=== PATIENT | female | born 1945 | race Caucasian/White ===

== ENCOUNTER 2021-03-02 18:58 | Emergency (ER) | payer MEDICARE, OTHER ==
[2021-03-02] MEDS ORDERED: Sodium Chloride 0.9% 10 ML Syringe FLUSH PRN (20:05)
[2021-03-02] MEDS ORDERED: Sodium Chloride 0.9% 1,000 ML IV ONE ×2 (20:05→20:07)
[2021-03-02] MEDS ORDERED: Sodium Chloride 0.9% 2.5 ML Syringe FLUSH PRN (20:05)
[2021-03-02] MEDS ORDERED: Ondansetron 4 MG/2 ML SDV IVPUSH ONE ×2 (20:05→22:48)
[2021-03-02 20:22] LABS: BLOOD UREA NITROGEN,BUN 12 mg/dL (7.0-18.0); CARBON DIOXIDE,CO2 25.3 mmol/L (21.0-32.0); CHLORIDE,CL 103 mmol/L (98-107); GLUCOSE RANDOM 136 mg/dL (74-106); POTASSIUM,K 3.6 mmol/L (3.5-5.1); SODIUM,NA 137 mmol/L (136-145)
--- NOTE | 2021-03-02 20:38 | CR ---
INDICATION: Cough. COMPARISON: 12 May 2011. FINDINGS: Chronic slight elevation medial right hemidiaphragm. Heart size upper normal for AP projection. No acute cardiopulmonary disease. No meaningful change from comparison. Dictated by Felipe Hastings MD @ 03/02/2021 8:37:[address] Felipe Hastings @ Mar 02 2021 8:37PM
[2021-03-02 21:16] LABS: CORONAVIRUS COVID-19 NAA POSITIVE (NEGATIVE); INFLUENZA A NAA NEGATIVE (NEGATIVE); INFLUENZA B NAA NEGATIVE (NEGATIVE)
--- NOTE | 2021-03-02 22:26 | EDM.PDOC ---
ED HPI GENERAL MEDICAL PROBLEM - General Chief Complaint: Respiratory Problem Stated Complaint: FATIGUE SHORTNESS OF BREATH Time Seen by Provider: 03/02/21 19:24 - History of Present Illness INITIAL COMMENTS - FREE TEXT/NARRATIVE: HISTORY AND PHYSICAL: History of present illness: This is a 75-year-old female who is status post renal transplant x2 who is currently on chronic steroid, Prograf use who presents ER today secondary to concerns of URI symptoms, shortness of breath, cough, congestion, loss of taste and smell x5 to 6 days. Patient reports that she is visiting family from [place] when her symptoms began. Patient denies any recent fevers, shakes, chills. Patient reports that she has been feeling cold over the last several days. Patient denies any vomiting or diarrhea but reports that she feels extremely nauseous. Patient is complaining of a headache with no photophobia or neck stiffness. Patient denies any chest pain or discomfort. Patient denies any abdominal pain or discomfort. Patient denies any dysuria, frequency, urgency, melena, bright red blood per rectum. Patient reports that she did receive her second dose of Covid vaccination approximately 1 month ago. Review of systems: As per history of present illness and below otherwise all systems reviewed and negative. Past medical history: As per history of present illness and as reviewed below otherwise noncontributory. Surgical history: As per history of present illness and as reviewed below otherwise noncontributory. Social history: No reported history of drug or alcohol abuse. Family history: As per history of present illness and as reviewed below otherwise noncontributory. Physical exam: This patient was seen and evaluated during the 2019 SARS-CoV-2 novel coronavirus pandemic period. Community viral transmission is ongoing at time of this encounter and the emergency department is operating under pandemic response procedures. Constitutional: Patient is oriented to person, place, and time. Appears well-developed and well-nourished. No distress. HEENT: Moist mucous membranes Head: Normocephalic and atraumatic Eyes: Right eye exhibits no discharge. Left eye exhibits no discharge. No scleral icterus Neck: Normal range of motion. No tracheal deviation present. Cardiovascular: Normal rate and regular rhythm. Pulmonary: Effort normal, no respiratory distress. Abdominal: No distention Musculoskeletal: Normal range of motion Neurologic: Alert and oriented to person, place and time. Skin: [place], warm and dry. Psychiatric: Normal mood and affect. Behavior is normal. Judgment and thought content normal. Nursing note and vital signs have been reviewed Diagnostics: Chest Xray: Normal cardiac silhouette No infiltrates or effusions identified. No PTX No evidence of acute bony fracture. As interpreted by ER MD: Valerie EKG: As interpreted by ER physician: Valerie: Nonspecific ST-T wave abnormalities Normal axis No evidence of ST elevation [place] Normal sinus rhythm heart rate of 75 CBC, CMP within normal limits. Patient's creatinine is 0.8. \Prograf level sent but is a send out. Influenza A/B- coronavirus test is positive in the ED. Pulse ox 94 to 97% on room air Therapeutics: Zofran 4 mg IV NSS wide open x2 L Regeneron order sheet initiated in the ED. I have discussed with the patient and her daughter the risks and benefits of receiving Regeneron and they understand the current FDA recommendations. Assessment and plan: This is a 75-year-old female who has history significant for renal transplant and is on immunosuppressive therapy who presents ER today with signs and sy mptoms concerning for Covid. Patient's Covid test is positive despite receiving her 2 immunizations. Likely failure of the immunizations most likely related to her immunosuppressive therapy. Patient's work-up in the ED is unremarkable at this time. Patient's pulse ox is adequate at 94%. Patient's chest x-ray reveals no evidence of infiltrate. Patient's BUN and creatinine are within normal limits. Given patient's high risk for deterioration to severe coronavirus infection, I have recommended that she receive Regeneron infusion. I have spoken to the pharmacist baton teacher and she will assist with assuring appropriate follow-up. We have also filled out the appropriate forms and will be faxed to assure appropriate follow-up of care. Patient currently is living with her daughter, son-in-law, and 3 grandchildren. It appears that her daughter, son-in-law and oldest grandchild of all received the coronavirus vaccination and the family in total have all been exposed and diagnosed with co ronavirus approximately 3 months ago and did not have any significant bad outcomes. Patient and daughter are currently agreeable to initiating the Regeneron protocol for infusion therapy. Reassessment at the time of disposition demonstrates that the patient is in no acute distress. The patient has remained stable throughout the entire ED visit and is without objective evidence for acute process requiring urgent intervention or hospitalization. The patient is stable for discharge, counseling is provided as documented above, discussed symptomatic treatment and specific conditions for return. I have spoken with the patient/caregiver and discussed todays findings, in addition to providing specific details for the plan of care. Questions are answered and there is agreement with the plan. Definitive disposition and diagnosis as appropriate pending reevaluation and review of above. Right Shoulder Pain Score (Numeric/FACES): 4 - Related Data Allergies Allergy/AdvReac Type Severity Reaction Status Date / Time No Known Allergies Allergy Verified 03/02/21 19:26 Home Meds: Home Meds Aspirin 81 mg PO DAILY 03/02/21 [History] Azithromycin [Zithromax] 250 mg PO DAILY 03/02/21 [History] Blood-Glucose Meter,Continuous [Dexcom] 1 dose SUBCUT ASDIRECTED 03/02/21 [History] Docusate Sodium 100 mg PO DAILY 03/02/21 [History] Furosemide [Lasix] 20 mg PO DAILY 03/02/21 [History] Gabapentin [Neurontin] 100 mg PO DAILY 03/02/21 [History] Glimepiride 1 mg PO DAILY 03/02/21 [History] Insulin Aspart [NovoLOG] 1 dose SUBCUT ASDIRECTED 03/02/21 [History] Insulin Glargine,Hum.Rec.Anlog [Basaglar Kwikpen U-100] 1 dose SUBCUT ASDIRECTED 03/02/21 [History] Magnesium Oxide [Magnesium] 400 mg PO DAILY 03/02/21 [History] Mycophenolate Sodium [Mycophenolic Acid] 360 mg PO DAILY 03/02/21 [History] Omeprazole 40 mg PO DAILY 03/02/21 [History] Spironolactone [Aldactone] 25 mg PO DAILY 03/02/21 [History] Tacrolimus [Prograf] 1 mg PO DAILY 03/02/21 [History] Zolpidem [Ambien] 10 mg PO DAILY 03/02/21 [History] amLODIPine [Norvasc] 5 mg PO DAILY 03/02/21 [History] atorvaSTATin [Lipitor] 10 mg PO DAILY 03/02/21 [History] polyethylene glycoL 3350 [MiraLAX] 1 dose PO ASDIRECTED 03/02/21 [History] predniSONE [Prednisone] 5 mg PO DAILY 03/02/21 [History] Past Medical History HEENT History: Reports: Impaired Vision Cardiovascular History: Reports: Hypertension Respiratory History: Reports: None Genitourinary History: Reports: Chronic Renal Insuffiency, Dialysis Other Genitourinary History: two kidney transplants in 2008 and 2015 [employer] History: Reports: Musculoskeletal History: Reports: None Neurological History: Reports: None Psychiatric History: Reports: None Endocrine/Metabolic History: Reports: Diabetes, Type II Hematologic History: Reports: None Oncologic (Cancer) History: Reports: Malignant Melanoma Dermatologic History: Reports: None - Infectious Disease History Infectious Disease History: Reports: Chicken Pox, Measles, Mumps - Past Surgical History GI Surgical History: Reports: Cholecystectomy Social & Family History - Tobacco Use Tobacco Use Status *Q: Never Tobacco User - Caffeine Use Caffeine Use: Reports: Soda - Recreational Drug Use Recreational Drug Use: No ED ROS GENERAL - Review of Systems Review Of Systems: See Below ED EXAM, GENERAL - Physical Exam Exam: See Below Course - Vital Signs Last Recorded V/S: Last Vital Signs Temp 97.1 F 03/02/21 19:26 Pulse 72 03/02/21 21:25 Resp 19 03/02/21 21:25 BP 131/74 03/02/21 21:25 Pulse Ox 97 03/02/21 21:25 - Orders/Labs/Meds Orders: Active Orders 24 hr Category Date Time Status EKG Documentation Completion [RC] AM Care 03/02/21 20:05 Active TACROLIMUS (FK506), BLOOD [REF] Stat Lab 03/02/21 19:45 Received Sodium Chloride 0.9% [Saline Flush] Med 03/02/21 20:05 Active 10 ml FLUSH ASDIRECTED PRN Sodium Chloride 0.9% [Saline Flush] Med 03/02/21 20:05 Active 2.5 ml FLUSH ASDIRECTED PRN Saline Lock Insert [OM.PC] Stat Oth 03/02/21 20:05 Ordered Medication Orders Sodium Chloride (Sodium Chloride 0.9% 10 Ml Syringe) 10 ml FLUSH ASDIRECTED PRN PRN Reason: Keep Vein Open Last Admin: 03/02/21 20:26 Dose: 10 ml Documented by: JUAN M Sodium Chloride (Sodium Chloride 0.9% 2.5 Ml Syringe) 2.5 ml FLUSH ASDIRECTED PRN PRN Reason: Keep Vein Open Last Admin: 03/02/21 20:26 Dose: 2.5 ml Documented by: JUAN M Labs: Laboratory Tests 03/02/21 03/02/21 03/02/21 Range/Units 19:45 19:45 20:32 WBC 2.16 L (4.0-11.0) K/uL RBC 4.90 (4.30-5.90) M/uL Hgb 13.4 (12.0-16.0) g/dL Hct 42.5 (36.0-46.0) % MCV 86.7 (80.0-98.0) fL MCH 27.3 (27.0-32.0) pg MCHC 31.5 (31.0-37.0) g/dL RDW Std Deviation 49.2 (28.0-62.0) fl RDW Coeff of [place] 15 (11.0-15.0) % Plt Count 134 L (150-400) K/uL MPV 10.20 (7.40-12.00) fL Neut % (Auto) 41.2 L (48.0-80.0) % Lymph % (Auto) 45.8 H (16.0-40.0) % [place] % (Auto) 12.5 (0.0-15.0) % Eos % (Auto) 0.5 (0.0-7.0) % Baso % (Auto) 0.0 (0.0-1.5) % Neut # (Auto) 0.9 L (1.4-5.7) K/uL Lymph # (Auto) 1.0 (0.6-2.4) K/uL [place] # (Auto) 0.3 (0.0-0.8) K/uL Eos # (Auto) 0.0 (0.0-0.7) K/uL Baso # (Auto) 0.0 (0.0-0.1) K/uL Nucleated RBC % 0.0 /100WBC Nucleated RBCs # 0 K/uL Sodium 137 (136-145) mmol/L Potassium 3.6 (3.5-5.1) mmol/L Chloride 103 (98-107) mmol/L Carbon Dioxide 25.3 (21.0-32.0) mmol/L BUN 12 (7.0-18.0) mg/dL Creatinine 0.9 (0.6-1.0) mg/dL Est Cr Clr Drug Dosing 52.52 mL/min Estimated GFR (MDRD) > 60.0 ml/min Glucose 136 H (74-106) mg/dL Calcium 8.7 (8.5-10.1) mg/dL Total Bilirubin 0.6 (0.2-1.0) mg/dL AST 26 (15-37) IU/L ALT 22 (14-63) IU/L Alkaline Phosphatase 98 (46-116) U/L Total Protein 7.0 (6.4-8.2) g/dL Albumin 3.2 L (3.4-5.0) g/dL Globulin 3.8 (2.6-4.0) g/dL Albumin/Globulin Ratio 0.8 L (0.9-1.6) Urine Color Urine Appearance Urine pH (5.0-8.0) Ur Specific [place] (1.001-1.035) Urine Protein (NEGATIVE) mg/dL Urine Glucose (UA) (NEGATIVE) mg/dL Urine Ketones (NEGATIVE) mg/dL Urine Occult Blood (NEGATIVE) Urine Nitrite (NEGATIVE) Urine Bilirubin (NEGATIVE) Urine Urobilinogen (<2.0) EU/dL Ur Leukocyte Esterase (NEGATIVE) Influenza Type A RNA NEGATIVE (NEGATIVE) Influenza Type B RNA NEGATIVE (NEGATIVE) SARS-CoV-2 RNA (BELLA) POSITIVE H (NEGATIVE) 03/02/21 Range/Units 21:25 WBC (4.0-11.0) K/uL RBC (4.30-5.90) M/uL Hgb (12.0-16.0) g/dL Hct (36.0-46.0) % MCV (80.0-98.0) fL MCH (27.0-32.0) pg MCHC (31.0-37.0) g/dL RDW Std Deviation (28.0-62.0) fl RDW Coeff of [place] (11.0-15.0) % Plt Count (150-400) K/uL MPV (7.40-12.00) fL Neut % (Auto) (48.0-80.0) % Lymph % (Auto) (16.0-40.0) % [place] % (Auto) (0.0-15.0) % Eos % (Auto) (0.0-7.0) % Baso % (Auto) (0.0-1.5) % Neut # (Auto) (1.4-5.7) K/uL Lymph # (Auto) (0.6-2.4) K/uL [place] # (Auto) (0.0-0.8) K/uL Eos # (Auto) (0.0-0.7) K/uL Baso # (Auto) (0.0-0.1) K/uL Nucleated RBC % /100WBC Nucleated RBCs # K/uL Sodium (136-145) mmol/L Potassium (3.5-5.1) mmol/L Chloride (98-107) mmol/L Carbon Dioxide (21.0-32.0) mmol/L BUN (7.0-18.0) mg/dL Creatinine (0.6-1.0) mg/dL Est Cr Clr Drug Dosing mL/min Estimated GFR (MDRD) ml/min Glucose (74-106) mg/dL Calcium (8.5-10.1) mg/dL Total Bilirubin (0.2-1.0) mg/dL AST (15-37) IU/L ALT (14-63) IU/L Alkaline Phosphatase (46-116) U/L Total Protein (6.4-8.2) g/dL Albumin (3.4-5.0) g/dL Globulin (2.6-4.0) g/dL Albumin/Globulin Ratio (0.9-1.6) Urine Color YELLOW Urine Appearance CLEAR Urine pH 5.5 (5.0-8.0) Ur Specific [place] <= 1.005 (1.001-1.035) Urine Protein NEGATIVE (NEGATIVE) mg/dL Urine Glucose (UA) NEGATIVE (NEGATIVE) mg/dL Urine Ketones NEGATIVE (NEGATIVE) mg/dL Urine Occult Blood NEGATIVE (NEGATIVE) Urine Nitrite NEGATIVE (NEGATIVE) Urine Bilirubin NEGATIVE (NEGATIVE) Urine Urobilinogen 0.2 (<2.0) EU/dL Ur Leukocyte Esterase NEGATIVE (NEGATIVE) Influenza Type A RNA (NEGATIVE) Influenza Type B RNA (NEGATIVE) SARS-CoV-2 RNA (BELLA) (NEGATIVE) Meds: Medications Generic Name Dose Route Start Last Admin Trade Name Freq PRN Reason Stop Dose Admin Sodium Chloride 10 ml 03/02/21 20:05 03/02/21 20:26 Sodium Chloride 0.9% 10 Ml Syringe FLUSH 10 ml ASDIRECTED PRN Administration Keep Vein Open Sodium Chloride 2.5 ml 03/02/21 20:05 03/02/21 20:26 Sodium Chloride 0.9% 2.5 Ml Syringe FLUSH 2.5 ml ASDIRECTED PRN Administration Keep Vein Open Discontinued Medications Generic Name Dose Route Start Last Admin Trade Name Chuy PRN Reason Stop Dose Admin Sodium Chloride 1,000 mls @ 999 mls/hr 03/02/21 20:07 03/02/21 20:27 Normal Saline IV 03/02/21 21:07 999 mls/hr .Bolus ONE Administration Sodium Chloride 1,000 mls @ 999 mls/hr 03/02/21 20:05 03/02/21 21:30 Normal Saline IV 03/02/21 21:05 999 mls/hr .Bolus ONE Administration Ondansetron HCl 4 mg 03/02/21 20:05 03/02/21 20:27 Ondansetron 4 Mg/2 Ml Sdv IVPUSH 03/02/21 20:06 4 mg ONETIME ONE Administration Departure - Departure Time of Disposition: 22:26 Disposition: Home, Self-Care 01 Condition: Good Clinical Impression: COVID-19 virus infection - Discharge Information Instructions: COVID-19 Frequently Asked Questions, How to Safely Wear and Take Off a Mask - CDC, 10 Things You Can Do to Manage Your COVID-19 Symptoms at Home - CDC, COVID-19: Quarantine vs. Isolation - [facility] Referrals: PCP,None [Primary Care Provider] - Additional Instructions: You have been seen and evaluated in the ER today secondary to signs and symptoms that were consistent with your coronavirus test was positive here in the ED. As we have discussed, at this time you do not meet criteria for inpatient level of care with your coronavirus. However you do meet criteria for infusion of Regeneron. You will be contacted in the morning by our hospital for further instructions as to the time and place to go to receive your infusion. Please return to the ER if you start experiencing any worsening shortness of breath. Please go home and get plenty of rest and drink plenty of fluids. You will be sent home with a prescription for Zofran to assist you with your nausea. You should purchase a pulse oximeter from the pharmacy so that you can keep an eye on your oxygen level. If your oxygen level should drop below 90% or if you start experiencing worsening shortness of breath or any new or concerning symptoms, please return to the ER for further evaluation. 1. Your COVID-19 screening is positive. That means you do have the coronavirus and you are considered contagious. Your vital signs and oxygen saturation are well enough that you were able to monitor your symptoms at home. Continue to monitor for trouble breathing, new confusion or inability to arouse, bluish lips or face or any of the other symptoms we discussed -if this occurs please return to the emergency room. 2. Please self quarantine over the next 10 days. Inform any persons that you have been in contact with since you started becoming symptomatic that you have tested positive; they should be made aware and take the appropriate steps as needed. 3. You can take NyQuil during the evening to help get a restful night sleep. May alternate Tylenol and ibuprofen as needed for pain and fever management. 4. The special care hospital department will be calling you and following up with you. The [place] COVID 19 Hotline phone number , They are open Sunday - Sunday 7am - 7pm. Follow up with your primary care provider for re-evaluation and re-testing after the 10 day quarantine and discuss when you should be seen. The following information is given to patients seen in the emergency department who are being discharged to home. This information is to outline your options for follow-up care. We provide all patients seen in our emergency department with a follow-up referral. The need for follow-up, as well as the timing and circumstances, are variable depending upon the specifics of your emergency department visit. If you don't have a primary care physician on staff, we will provide you with a referral. We always advise you to contact your personal physician following an emergency department visit to inform them of the circumstance of the visit and for follow-up with them and/or the need for any referrals to a consulting specialist. The emergency department will also refer you to a specialist when appropriate. This referral assures that you have the opportunity for follow-up care with a specialist. All of these measure are taken in an effort to provide you with optimal care, which includes your follow-up. Under all circumstances we always encourage you to contact your private physician who remains a resource for coordinating your care. When calling for follow-up care, please make the office aware that this follow-up is from your recent emergency room visit. If for any reason you are refused follow-up, please contact the [facility] Emergency Department at and asked to speak to the emergency department charge nurse. [facility] Primary Care [address], [place] [address] [facility] [address] [place] [address] Sepsis Event Note (ED) - Evaluation Sepsis Screening Result: No Definite Risk - Focused Exam Vital Signs: Vital Signs Temp Pulse Resp BP Pulse Ox 03/02/21 21:25 72 19 131/74 97 03/02/21 19:26 97.1 F 77 16 122/80 95 - My Orders Last 24 Hours: My Active Orders 03/02/21 19:45 TACROLIMUS (FK506), BLOOD [REF] Stat 03/02/21 20:05 EKG Documentation Completion [RC] AM Sodium Chloride 0.9% [Saline Flush] 10 ml FLUSH ASDIRECTED PRN Sodium Chloride 0.9% [Saline Flush] 2.5 ml FLUSH ASDIRECTED PRN Saline Lock Insert [OM.PC] Stat - Assessment/Plan Last 24 Hours: My Active Orders 03/02/21 19:45 TACROLIMUS (FK506), BLOOD [REF] Stat 03/02/21 20:05 EKG Documentation Completion [RC] AM Sodium Chloride 0.9% [Saline Flush] 10 ml FLUSH ASDIRECTED PRN Sodium Chloride 0.9% [Saline Flush] 2.5 ml FLUSH ASDIRECTED PRN Saline Lock Insert [OM.PC] Stat
[2021-03-02] MEDS ORDERED: Ondansetron 4 MG/2 ML SDV ONE (22:50)
== END 2021-03-02 22:59 | disposition home or self-care (01) ==
LOC: MW.ED 18:58
DX: U07.1 COVID-19 (principal); M25.511 Pain in right shoulder; I12.0 Hypertensive chronic kidney disease with stage 5 chronic kidney disease or end stage renal disease; E11.22 Type 2 diabetes mellitus with diabetic chronic kidney disease; N18.6 End stage renal disease; Z99.2 Dependence on renal dialysis; Z79.82 Long term (current) use of aspirin; Z79.4 Long term (current) use of insulin; Z79.899 Other long term (current) drug therapy
CPT/HCPCS: 0240U; 36415; 71045; 80053; 80197; 81003; 85025; 93005; 96374; 96376; 99284; J2405; J7030; 93010

== ENCOUNTER 2021-03-04 12:29 | Inpatient (IN) | payer MEDICARE, OTHER ==
[2021-03-04] MEDS ORDERED: Sodium Chloride 0.9% 10 ML Syringe FLUSH PRN (12:44)
[2021-03-04] MEDS ORDERED: Sodium Chloride 0.9% 2.5 ML Syringe FLUSH PRN ×2 (12:44→15:31)
[2021-03-04] MEDS ORDERED: Dexamethasone 10 MG/ML SDV IVPUSH ONE (12:45)
[2021-03-04] MEDS ORDERED: Sodium Chloride 0.9% 500 ML IV SCH (12:45)
[2021-03-04] MEDS ORDERED: Ondansetron 4 MG/2 ML SDV IVPUSH ONE (12:47)
--- NOTE | 2021-03-04 12:52 | EDM.PDOC ---
ED HPI GENERAL MEDICAL PROBLEM - General Chief Complaint: Respiratory Problem Stated Complaint: COVID Time Seen by Provider: 03/04/21 12:31 - History of Present Illness INITIAL COMMENTS - FREE TEXT/NARRATIVE: 75-year-old female with a history of multiple medical problems including diabetes and renal transplant is presenting with worsening shortness of breath as well as fatigue and diarrhea and nausea without vomiting. Patient was diagnosed with COVID-19 the day before yesterday. She completed her antibiotic infusion yesterday and felt relatively good following that. However today she felt much worse with the symptoms noted above. No chest pain symptoms do not worsen with laying back they do worsen with exertion and are associated with a cough. No lower extremity pain or swelling. genralized bodyaches Pain Score (Numeric/FACES): 6 - Related Data Allergies Allergy/AdvReac Type Severity Reaction Status Date / Time Sulfa (Sulfonamide Allergy Hives Verified 03/04/21 13:04 Antibiotics) Home Meds: Home Meds Aspirin 81 mg PO DAILY 03/02/21 [History] Blood-Glucose Meter,Continuous [Dexcom] 1 dose SUBCUT ASDIRECTED 03/02/21 [History] Docusate Sodium 100 mg PO DAILY 03/02/21 [History] Furosemide [Lasix] 20 mg PO DAILY 03/02/21 [History] Gabapentin [Neurontin] 100 mg PO DAILY 03/02/21 [History] Glimepiride 1 mg PO DAILY 03/02/21 [History] Insulin Aspart [NovoLOG] 1 dose SUBCUT ASDIRECTED 03/02/21 [History] Insulin Glargine,Hum.Rec.Anlog [Basaglar Kwikpen U-100] 1 dose SUBCUT ASDIRECTED 03/02/21 [History] Magnesium Oxide [Magnesium] 400 mg PO DAILY 03/02/21 [History] Mycophenolate Sodium [Mycophenolic Acid] 360 mg PO DAILY 03/02/21 [History] Omeprazole 40 mg PO DAILY 03/02/21 [History] Ondansetron [Zofran ODT] 4 mg PO Q6H PRN #12 tab.dis 03/02/21 [Rx] Spironolactone [Aldactone] 25 mg PO DAILY 03/02/21 [History] Tacrolimus [Prograf] 1 mg PO DAILY 03/02/21 [History] Zolpidem [Ambien] 10 mg PO DAILY 03/02/21 [History] amLODIPine [Norvasc] 5 mg PO DAILY 03/02/21 [History] atorvaSTATin [Lipitor] 10 mg PO DAILY 03/02/21 [History] polyethylene glycoL 3350 [MiraLAX] 1 dose PO ASDIRECTED 03/02/21 [History] predniSONE [Prednisone] 5 mg PO DAILY 03/02/21 [History] Past Medical History HEENT History: Reports: Impaired Vision Cardiovascular History: Reports: Hypertension Respiratory History: Reports: None Genitourinary History: Reports: Chronic Renal Insuffiency, Dialysis Other Genitourinary History: two kidney transplants in 2008 and 2015 [employer] History: Reports: Musculoskeletal History: Reports: None Neurological History: Reports: None Psychiatric History: Reports: None Endocrine/Metabolic History: Reports: Diabetes, Type II Hematologic History: Reports: None Oncologic (Cancer) History: Reports: Malignant Melanoma Dermatologic History: Reports: None - Infectious Disease History Infectious Disease History: Reports: Chicken Pox, Measles, Mumps - Past Surgical History GI Surgical History: Reports: Cholecystectomy Social & Family History - Caffeine Use Caffeine Use: Reports: Soda ED ROS GENERAL - Review of Systems Review Of Systems: See Below Free Text/Narrative/Comment: General: Per HPI Skin: No rash. Eyes: No vision problems. ENT: No sore throat. Neck: No neck stiffness. Respiratory: Per HPI Cardiac: No chest pain. Gastrointestinal: Per HPI. Urinary: No dysuria. Musculoskeletal: No myalgias/arthralgias. Neurologic: No headache. ED EXAM, GENERAL - Physical Exam Exam: See Below Free Text/Narrative:: General Appearance: No acute distress, appears comfortable Skin: No rash HEENT: Normocephalic/atraumatic, sclera anicteric, mucous membranes dry Neck: Normal range of motion Chest and Lungs: Bilateral breath sounds, clear to auscultation Cardiovascular: Regular rate and rhythm, no murmur Abdomen: Soft, non-tender Back: Normal Musculoskeletal: No edema or tenderness Neurologic: Awake, alert, no obvious deficits, moving all extremities Psychiatric: Appropriate, cooperative #1 Interpretation EKG Date: 03/04/21 Time: 13:29 EKG Interpretation Comments: Sinus rhythm rate of 63 right bundle branch block no acute ischemia Course - Vital Signs Last Recorded V/S: Last Vital Signs Temp 98.9 F 03/04/21 12:31 Pulse 61 03/04/21 13:30 Resp 18 03/04/21 13:30 BP 103/55 L 03/04/21 13:30 Pulse Ox 93 L 03/04/21 13:30 - Orders/Labs/Meds Orders: Active Orders 24 hr Category Date Time Status Patient Status [ADT] Routine ADT 03/04/21 14:12 Active EKG 12 Lead [EKG Documentation Completion] [RC] STAT Care 03/04/21 12:55 Active Sodium Chloride 0.9% [Normal Saline] 500 ml Med 03/04/21 12:45 Active IV .BOLUS Sodium Chloride 0.9% [Saline Flush] Med 03/04/21 12:44 Active 10 ml FLUSH ASDIRECTED PRN Sodium Chloride 0.9% [Saline Flush] Med 03/04/21 12:44 Active 2.5 ml FLUSH ASDIRECTED PRN Saline Lock Insert [OM.PC] Stat Oth 03/04/21 12:44 Ordered Medication Orders Sodium Chloride (Normal Saline) 500 mls @ 999 mls/hr IV .BOLUS EKTA Last Admin: 03/04/21 13:16 Dose: 999 mls/hr Documented by: FLORY Sodium Chloride (Sodium Chloride 0.9% 10 Ml Syringe) 10 ml FLUSH ASDIRECTED PRN PRN Reason: Keep Vein Open Last Admin: 03/04/21 13:19 Dose: 10 ml Documented by: FLORY Sodium Chloride (Sodium Chloride 0.9% 2.5 Ml Syringe) 2.5 ml FLUSH ASDIRECTED PRN PRN Reason: Keep Vein Open Last Admin: 03/04/21 13:19 Dose: 2.5 ml Documented by: FLORY Labs: Laboratory Tests 03/04/21 03/04/21 03/04/21 Range/Units 13:10 13:10 13:10 WBC 3.21 L (4.0-11.0) K/uL RBC 4.47 (4.30-5.90) M/uL Hgb 12.2 (12.0-16.0) g/dL Hct 38.8 (36.0-46.0) % MCV 86.8 (80.0-98.0) fL MCH 27.3 (27.0-32.0) pg MCHC 31.4 (31.0-37.0) g/dL RDW Std Deviation 49.1 (28.0-62.0) fl RDW Coeff of Bernarda 15 (11.0-15.0) % Plt Count 143 L (150-400) K/uL MPV 10.10 (7.40-12.00) fL Neut % (Auto) 60.8 (48.0-80.0) % Lymph % (Auto) 27.7 (16.0-40.0) % Phelps % (Auto) 11.5 (0.0-15.0) % Eos % (Auto) 0.0 (0.0-7.0) % Baso % (Auto) 0.0 (0.0-1.5) % Neut # (Auto) 2.0 (1.4-5.7) K/uL Lymph # (Auto) 0.9 (0.6-2.4) K/uL Phelps # (Auto) 0.4 (0.0-0.8) K/uL Eos # (Auto) 0.0 (0.0-0.7) K/uL Baso # (Auto) 0.0 (0.0-0.1) K/uL Nucleated RBC % 0.0 /100WBC Nucleated RBCs # 0 K/uL Sodium 138 (136-145) mmol/L Potassium 3.6 (3.5-5.1) mmol/L Chloride 102 (98-107) mmol/L Carbon Dioxide 28.5 (21.0-32.0) mmol/L BUN 9 (7.0-18.0) mg/dL Creatinine 1.0 (0.6-1.0) mg/dL Est Cr Clr Drug Dosing 47.27 mL/min Estimated GFR (MDRD) 54.1 ml/min Glucose 113 H (74-106) mg/dL Calcium 8.1 L (8.5-10.1) mg/dL Total Bilirubin 0.7 (0.2-1.0) mg/dL AST 19 (15-37) IU/L ALT 16 (14-63) IU/L Alkaline Phosphatase 80 (46-116) U/L Troponin I < 0.050 (0.000-0.056) ng/mL B-Natriuretic Peptide 157 H (<100) PG/ML Total Protein 6.2 L (6.4-8.2) g/dL Albumin 2.6 L (3.4-5.0) g/dL Globulin 3.6 (2.6-4.0) g/dL Albumin/Globulin Ratio 0.7 L (0.9-1.6) Meds: Medications Generic Name Dose Route Start Last Admin Trade Name Freq PRN Reason Stop Dose Admin Sodium Chloride 500 mls @ 999 mls/hr 03/04/21 12:45 03/04/21 13:16 Normal Saline IV 999 mls/hr .BOLUS EKTA Administration Sodium Chloride 10 ml 03/04/21 12:44 03/04/21 13:19 Sodium Chloride 0.9% 10 Ml Syringe FLUSH 10 ml ASDIRECTED PRN Administration Keep Vein Open Sodium Chloride 2.5 ml 03/04/21 12:44 03/04/21 13:19 Sodium Chloride 0.9% 2.5 Ml Syringe FLUSH 2.5 ml ASDIRECTED PRN Administration Keep Vein Open Discontinued Medications Generic Name Dose Route Start Last Admin Trade Name Freq PRN Reason Stop Dose Admin Dexamethasone 6 mg 03/04/21 12:45 03/04/21 13:18 Dexamethasone 10 Mg/Ml Sdv IVPUSH 03/04/21 12:46 6 mg ONETIME ONE Administration Ondansetron HCl 4 mg 03/04/21 12:47 03/04/21 13:16 Ondansetron 4 Mg/2 Ml Sdv IVPUSH 03/04/21 12:48 4 mg ONETIME ONE Administration Departure - Departure Time of Disposition: 14:57 Disposition: Admitted As Inpatient 66 Condition: Fair Clinical Impression: COVID-19 - Discharge Information *PRESCRIPTION DRUG MONITORING PROGRAM REVIEWED*: Not Applicable *COPY OF PRESCRIPTION DRUG MONITORING REPORT IN PATIENT PRASHANT: Not Applicable Referrals: PCP,Not In Area [Primary Care Provider] - Forms: ED Department Discharge Sepsis Event Note (ED) - Focused Exam Vital Signs: Vital Signs Temp Pulse Resp BP Pulse Ox 03/04/21 13:30 61 18 103/55 L 93 L 03/04/21 12:45 63 18 101/58 L 94 L 03/04/21 12:31 98.9 F 65 20 101/58 L 85 L - My Orders Last 24 Hours: My Active Orders 03/04/21 12:44 Sodium Chloride 0.9% [Saline Flush] 10 ml FLUSH ASDIRECTED PRN Sodium Chloride 0.9% [Saline Flush] 2.5 ml FLUSH ASDIRECTED PRN Saline Lock Insert [OM.PC] Stat 03/04/21 12:45 Sodium Chloride 0.9% [Normal Saline] 500 ml IV .BOLUS 03/04/21 12:55 EKG 12 Lead [EKG Documentation Completion] [RC] STAT 03/04/21 14:12 Patient Status [ADT] Routine - Assessment/Plan Last 24 Hours: My Active Orders 03/04/21 12:44 Sodium Chloride 0.9% [Saline Flush] 10 ml FLUSH ASDIRECTED PRN Sodium Chloride 0.9% [Saline Flush] 2.5 ml FLUSH ASDIRECTED PRN Saline Lock Insert [OM.PC] Stat 03/04/21 12:45 Sodium Chloride 0.9% [Normal Saline] 500 ml IV .BOLUS 03/04/21 12:55 EKG 12 Lead [EKG Documentation Completion] [RC] STAT 03/04/21 14:12 Patient Status [ADT] Routine Assessment:: 71-year-old female with history as noted above presenting signs symptoms of consistent with acute hypoxic respiratory failure secondary to COVID-19 infection. EKG and troponin to assess for any signs of myocarditis though felt less likely no clear signs of CHF. Chest x-ray as well. Patient now with good oxygenation on 3 L nasal cannula. Given this patient will require admission. We will need to be judicious with IV fluids. I do have concerns regarding her history of remote kidney transplantation but we do not wish to fluid overload her and so we will start with 500 cc of normal saline. Blood work and imaging pending and will continue to reassess. Labs and chest x-ray consistent with coronavirus. No signs of worsening heart failure. Given her acute hypoxic respiratory failure patient discussed with Dr. Benites and will admit to telemetry.
--- NOTE | 2021-03-04 13:43 | CR ---
INDICATION: Shortness of breath and hypoxia. COVID positive. TECHNIQUE: Chest 1 views COMPARISON: March 02, 2021. FINDINGS: Cardiovascular and mediastinum: Heart size is within normal limits. Lungs and pleural spaces: There is central peribronchial cuffing. No lobar consolidations or significant effusions. No pneumothorax. Bones and soft tissues: No significant findings. IMPRESSION: Central peribronchial infiltrates could represent bronchitis, CHF or fluid overload. Remainder of the exam is unremarkable. Dictated by Doug Coyle MD @ 03/04/2021 1:43:[address] Doug Coyle @ Mar 04 2021 1:43PM
[2021-03-04 13:49] LABS: BLOOD UREA NITROGEN,BUN 9 mg/dL (7.0-18.0); CARBON DIOXIDE,CO2 28.5 mmol/L (21.0-32.0); CHLORIDE,CL 102 mmol/L (98-107); GLUCOSE RANDOM 113 mg/dL (74-106); POTASSIUM,K 3.6 mmol/L (3.5-5.1); SODIUM,NA 138 mmol/L (136-145)
[2021-03-04] MEDS ORDERED: Acetaminophen 325 MG Tab PO PRN (15:31)
[2021-03-04] MEDS ORDERED: Ondansetron 4 MG/2 ML SDV IVPUSH PRN (15:31)
[2021-03-04] MEDS ORDERED: 50% Dextrose in Water 50 ML Syringe IV PRN (15:37)
[2021-03-04] MEDS ORDERED: Glucagon,Human Recombinant 1 MG Vial IM PRN (15:37)
--- NOTE | 2021-03-04 15:45 | PCM.HP.2 ---
H&P History of Present Illness - General Date of Service: 03/04/21 Admit Problem/Dx: Admission Diagnosis/Problem Admission Diagnosis/Problem Hypoxia - History of Present Illness Initial Comments - Free Text/Narative: This 75-year-old female with past medical history of hypertension, renal insufficiency with transplants x2 in 2008 2015, DM type II presented to the ER with complaints of worsening shortness of breath as well as fatigue, diarrhea, nausea and vomiting. She was diagnosed with COVID-19 03/02/2021. She reports she had antibody infusion yesterday 03/03/2021 and felt relatively well after that. However overnight she reports oxygen saturations did dip to 88% and she had worsening of shortness of breath. Today she is feeling worse in regards to shortness of breath fatigue and abdominal symptoms such as diarrhea nausea vomiting. She denies any chest pain she denies shortness of breath worsens with laying down. She reports shortness of breath is worsened with exertion and cough. She denies any abdominal pain no black or bloody bowel movements and no extremity pain or swelling. Stools are more loose and soft not necessarily diarrhea. She does report appetite is quite poor and has been cutting back on insulin usage at home. She reports she is a very brittle diabetic has not been taking her NovoLog with meals as she is not eating much. She has continued to take her Basaglar 30 units at bedtime. She reports if blood sugar gets close to 100 she needs to have something to eat or she will crash very suddenly. She denies any recreational drug use no tobacco use and no alcohol use. In the ER slight leukopenia noted at 3.21. Platelets 143,000. Sodium 138, potassium 3.6, BUN 9 creatinine 1.0. Glucose 113 AST ALT and total bilirubin within normal limits. Troponin negative. BNP slightly elevated at 157. Chest x-ray obtained which reveals central peribronchial infiltrates could represent bronchitis CHF or fluid overload remainder of exam is unremarkable. Vital signs while in the ER noted to have blood pressures 100s/50s heart rate 60s she was noted to be hypoxic 85% on room air respiratory rate is 20 afebrile. In the ER she was treated with Decadron 6 mg IV push along with Zofran and a 500 mL bolus. She will be admitted inpatient for acute hypoxic respiratory failure secondary to COVID-19. She reports approximately 1 month ago she did complete her Moderna Covid vaccine schedule. genralized bodyaches Pain Score (Numeric/FACES): 6 - Related Data Allergies/Adverse Reactions: Allergies Allergy/AdvReac Type Severity Reaction Status Date / Time Sulfa (Sulfonamide Allergy Hives Verified 03/04/21 13:04 Antibiotics) Home Medications: Home Meds Aspirin 81 mg PO DAILY 03/02/21 [History] Blood-Glucose Meter,Continuous [Dexcom] 1 dose SUBCUT ASDIRECTED 03/02/21 [History] Docusate Sodium 100 mg PO DAILY 03/02/21 [History] Furosemide [Lasix] 20 mg PO DAILY 03/02/21 [History] Gabapentin [Neurontin] 100 mg PO DAILY 03/02/21 [History] Glimepiride 1 mg PO DAILY 03/02/21 [History] Insulin Aspart [NovoLOG] 1 dose SUBCUT ASDIRECTED 03/02/21 [History] Insulin Glargine,Hum.Rec.Anlog [Basaglar Kwikpen U-100] 1 dose SUBCUT ASDIRECTED 03/02/21 [History] Magnesium Oxide [Magnesium] 400 mg PO DAILY 03/02/21 [History] Mycophenolate Sodium [Mycophenolic Acid] 360 mg PO DAILY 03/02/21 [History] Omeprazole 40 mg PO DAILY 03/02/21 [History] Ondansetron [Zofran ODT] 4 mg PO Q6H PRN #12 tab.dis 03/02/21 [Rx] Spironolactone [Aldactone] 25 mg PO DAILY 03/02/21 [History] Tacrolimus [Prograf] 1 mg PO DAILY 03/02/21 [History] Zolpidem [Ambien] 10 mg PO DAILY 03/02/21 [History] amLODIPine [Norvasc] 5 mg PO DAILY 03/02/21 [History] atorvaSTATin [Lipitor] 10 mg PO DAILY 03/02/21 [History] polyethylene glycoL 3350 [MiraLAX] 1 dose PO ASDIRECTED 03/02/21 [History] predniSONE [Prednisone] 5 mg PO DAILY 03/02/21 [History] Past Medical History HEENT History: Reports: Impaired Vision Cardiovascular History: Reports: Hypertension Respiratory History: Reports: None Genitourinary History: Reports: Chronic Renal Insuffiency, Dialysis Other Genitourinary History: two kidney transplants in 2008 and 2016 [employer] History: Reports: Musculoskeletal History: Reports: None Neurological History: Reports: None Psychiatric History: Reports: None Endocrine/Metabolic History: Reports: Diabetes, Type II Hematologic History: Reports: None Oncologic (Cancer) History: Reports: Malignant Melanoma Dermatologic History: Reports: None - Infectious Disease History Infectious Disease History: Reports: Chicken Pox, Measles, Mumps - Past Surgical History GI Surgical History: Reports: Cholecystectomy Social & Family History - Tobacco Use Tobacco Use Status *Q: Never Tobacco User - Caffeine Use Caffeine Use: Reports: Soda - Alcohol Use Alcohol Use History: No - Living Situation & Occupation Living situation: Reports: Occupation: Retired H&P Review of Systems - Review of Systems: Review Of Systems: See Below General: Reports: Fever, Chills, Malaise, Weakness, Fatigue, Decreased Appetite HEENT: Reports: Headaches, Rhinitis, Sinus Congestion, Sore Throat Pulmonary: Reports: No Symptoms, Shortness of Breath, Cough, Sputum (Clear). Denies: Hemoptysis Cardiovascular: Reports: Dyspnea on Exertion. Denies: Chest Pain, Palpitations Gastrointestinal: Reports: Diarrhea (Softer stools not watery diarrhea), Decreased Appetite, Nausea, Vomiting. Denies: Abdominal Pain, Black Stool, Bloody Stool Genitourinary: Reports: No Symptoms. Denies: Dysuria, Frequency, Burning Skin: Reports: No Symptoms Psychiatric: Reports: No Symptoms Neurological: Reports: No Symptoms Hematologic/Lymphatic: Reports: No Symptoms Immunologic: Reports: No Symptoms Exam - Exam Exam: See Below - Vital Signs Vital Signs: Last Vital Signs Temp 98.9 F 03/04/21 12:31 Pulse 61 03/04/21 13:30 Resp 18 03/04/21 13:30 BP 103/55 L 03/04/21 13:30 Pulse Ox 93 L 03/04/21 13:30 Weight: 104 kg - Exam Quality Assessment: Supplemental Oxygen (2 L nasal cannula) General: Alert, Oriented, Cooperative, Other (Appears to not feel well) HEENT: Conjunctiva Clear, Posterior Pharynx Clear. No: Mucosa Moist & [place] (Dry) Neck: Supple, Trachea Midline Lungs: Decreased Breath Sounds, Crackles (Bibasilar). No: Normal Respiratory Effort (Coughing and exertional dyspnea noted) Cardiovascular: Regular Rate, Regular Rhythm GI/Abdominal Exam: Normal Bowel Sounds, Soft, Non-Tender Extremities: Normal Inspection, Normal Range of Motion, Non-Tender, No Pedal Jose Daniel ma Skin: Warm, Dry Neuro Extensive - Mental Status: Alert, Oriented x3 Neuro Extensive - Motor, Sensory, Reflexes: CN II-XII Intact Psychiatric: Alert, Normal Affect, Normal Mood - Patient Data Lab Results Last 24 hrs: Laboratory Results - last 24 hr 03/04/21 03/04/21 03/04/21 Range/Units 13:10 13:10 13:10 WBC 3.21 L (4.0-11.0) K/uL RBC 4.47 (4.30-5.90) M/uL Hgb 12.2 (12.0-16.0) g/dL Hct 38.8 (36.0-46.0) % MCV 86.8 (80.0-98.0) fL MCH 27.3 (27.0-32.0) pg MCHC 31.4 (31.0-37.0) g/dL RDW Std Deviation 49.1 (28.0-62.0) fl RDW Coeff of Bernarda 15 (11.0-15.0) % Plt Count 143 L (150-400) K/uL MPV 10.10 (7.40-12.00) fL Neut % (Auto) 60.8 (48.0-80.0) % Lymph % (Auto) 27.7 (16.0-40.0) % Stanley % (Auto) 11.5 (0.0-15.0) % Eos % (Auto) 0.0 (0.0-7.0) % Baso % (Auto) 0.0 (0.0-1.5) % Neut # (Auto) 2.0 (1.4-5.7) K/uL Lymph # (Auto) 0.9 (0.6-2.4) K/uL Stanley # (Auto) 0.4 (0.0-0.8) K/uL Eos # (Auto) 0.0 (0.0-0.7) K/uL Baso # (Auto) 0.0 (0.0-0.1) K/uL Nucleated RBC % 0.0 /100WBC Nucleated RBCs # 0 K/uL Sodium 138 (136-145) mmol/L Potassium 3.6 (3.5-5.1) mmol/L Chloride 102 (98-107) mmol/L Carbon Dioxide 28.5 (21.0-32.0) mmol/L BUN 9 (7.0-18.0) mg/dL Creatinine 1.0 (0.6-1.0) mg/dL Est Cr Clr Drug Dosing 47.27 mL/min Estimated GFR (MDRD) 54.1 ml/min Glucose 113 H (74-106) mg/dL Calcium 8.1 L (8.5-10.1) mg/dL Total Bilirubin 0.7 (0.2-1.0) mg/dL AST 19 (15-37) IU/L ALT 16 (14-63) IU/L Alkaline Phosphatase 80 (46-116) U/L Troponin I < 0.050 (0.000-0.056) ng/mL B-Natriuretic Peptide 157 H (<100) PG/ML Total Protein 6.2 L (6.4-8.2) g/dL Albumin 2.6 L (3.4-5.0) g/dL Globulin 3.6 (2.6-4.0) g/dL Albumin/Globulin Ratio 0.7 L (0.9-1.6) Result Diagrams: 03/04/21 13:10 03/04/21 13:10 Sepsis Event Note - Evaluation Sepsis Screening Result: No Definite Risk - Focused Exam Vital Signs: Vital Signs Temp Pulse Resp BP Pulse Ox 03/04/21 13:30 61 18 103/55 L 93 L 03/04/21 12:45 63 18 101/58 L 94 L 03/04/21 12:31 98.9 F 65 20 101/58 L 85 L - Problem List (1) Acute respiratory failure with hypoxia SNOMED Code(s): 17789445, 832421924 ICD Code: J96.01 - ACUTE RESPIRATORY FAILURE WITH HYPOXIA Status: Acute Current Visit: Yes (2) COVID-19 SNOMED Code(s): 192220538 ICD Code: U07.1 - COVID-19 Status: Acute Current Visit: Yes (3) Renal transplant recipient Status: Chronic Current Visit: Yes (4) DM type 2 (diabetes mellitus, type 2) SNOMED Code(s): 12285763 ICD Code: E11.9 - TYPE 2 DIABETES MELLITUS WITHOUT COMPLICATIONS Status: Chronic Current Visit: Yes (5) Immunocompromised SNOMED Code(s): 901658309 ICD Code: D84.9 - IMMUNODEFICIENCY, UNSPECIFIED Status: Chronic Current Visit: Yes (6) Viral pneumonia SNOMED Code(s): 11276491 ICD Code: J12.9 - VIRAL PNEUMONIA, UNSPECIFIED Status: Acute Current Visit: Yes (7) HTN (hypertension) SNOMED Code(s): 67707755 ICD Code: I10 - ESSENTIAL (PRIMARY) HYPERTENSION Status: Chronic Current Visit: Yes Qualifiers: Hypertension type: essential hypertension Qualified Code(s): I10 - Essential (primary) hypertension Problem List Initiated/Reviewed/Updated: Yes Orders Last 24hrs: Active Orders 24 hr Category Date Time Status Patient Status [ADT] Routine ADT 03/04/21 14:12 Active Blood Glucose Check, Bedside [RC] TIDMEALS Care 03/04/21 15:31 Ordered Height and Weight [RC] DAILY Care 03/04/21 15:31 Ordered Intake and Output [RC] QSHIFT Care 03/04/21 15:32 Ordered Oxygen Therapy [RC] PRN Care 03/04/21 15:31 Ordered RT Incentive Spirometry [RC] Q1HWA Care 03/04/21 15:31 Ordered RT Post Treatment Assessment [RC] Click to Edit Care 03/04/21 15:34 Ordered RT Pre-Treatment Assessment [RC] Click to Edit Care 03/04/21 15:34 Ordered Up With Assistance [RC] ASDIRECTED Care 03/04/21 15:31 Ordered VTE/DVT Education [RC] PER UNIT ROUTINE Care 03/04/21 15:31 Ordered Vital Signs [RC] Q4H Care 03/04/21 15:31 Ordered [place] [employer] Diet [DIET] Diet 03/04/21 Lunch Ordered CBC WITH AUTO DIFF [HEME] AM Lab 03/05/21 05:11 Ordered COMPREHENSIVE METABOLIC PN,CMP [CHEM] AM Lab 03/05/21 05:11 Ordered MAGNESIUM [CHEM] AM Lab 03/05/21 05:11 Ordered Acetaminophen [TylenoL] Med 03/04/21 15:31 Ordered 650 mg PO Q4H PRN Albuterol/Ipratropium [Combivent Respimat] Med 03/04/21 18:00 Ordered See Dose Instructions INH QID Aspirin Med 03/05/21 09:00 Ordered 81 mg PO DAILY Dextrose 50% in Water Med 03/04/21 15:37 Ordered 50 ml IV ASDIRECTED PRN Gabapentin [Neurontin] Med 03/05/21 09:00 Ordered 100 mg PO DAILY Glucagon,Human Recombinant [GlucaGen] Med 03/04/21 15:37 Ordered 1 mg IM ASDIRECTED PRN Heparin Sodium Med 03/04/21 15:45 Ordered 5,000 units SUBCUT Q8H Insulin Aspart [NovoLOG] Med 03/04/21 17:00 Ordered See Protocol SUBCUT TIDAC Insulin Glarg,Human.Rec.Analog [LantUS Solostar] Med 03/04/21 21:00 Ordered 20 dose SUBCUT BEDTIME Mycophenolate Sodium [Mycophenolic Acid] Med 03/05/21 09:00 Ordered 360 mg PO DAILY Omeprazole [Omeprazole] Med 03/05/21 07:00 Ordered 40 mg PO DAILY@0700 Ondansetron [Zofran] Med 03/04/21 15:31 Ordered 4 mg IVPUSH Q4H PRN Remdesivir 100 mg Med 03/05/21 15:45 Ordered Sodium Chloride 0.9% [Normal Saline] 100 ml IV Q24H Remdesivir 200 mg Med 03/04/21 15:36 Ordered Sodium Chloride 0.9% [Normal Saline] 250 ml IV ONETIME Sodium Chloride 0.9% [Saline Flush] Med 03/04/21 15:31 Ordered 2.5 ml FLUSH ASDIRECTED PRN Tacrolimus [Prograf] Med 03/05/21 09:00 Ordered 1 mg PO DAILY atorvaSTATin [Lipitor] Med 03/05/21 09:00 Ordered 10 mg PO DAILY dexAMETHasone Med 03/05/21 09:00 Ordered 6 mg PO DAILY RT Acapella [RESPCARE] Routine Oth 03/04/21 15:35 Ordered Saline Lock Insert [OM.PC] Routine Oth 03/04/21 15:31 Ordered Resuscitation Status Routine Resus Stat 03/04/21 15:31 Ordered Medication Orders Acetaminophen (Acetaminophen 325 Mg Tab) 650 mg PO Q4H PRN PRN Reason: Pain (Mild 1-3)/fever Albuterol/Ipratropium (Albuterol/Ipratropium 4 Gm Inhalation [place]) 0 gm INH QID EKTA Aspirin (Aspirin 81 Mg Tab.Chew) 81 mg PO DAILY EKTA Atorvastatin Calcium (Atorvastatin 10 Mg Tab) 10 mg PO DAILY [facility] Dexamethasone (Dexamethasone 4 Mg Tab) 6 mg PO DAILY [facility] Stop: 03/13/21 09:01 Dextrose/Water (50% Dextrose In Water 50 Ml Syringe) 50 ml IV ASDIRECTED PRN PRN Reason: Hypoglycemia Gabapentin (Gabapentin 100 Mg Cap) 100 mg PO DAILY [facility] Glucagon (Glucagon,Human Recombinant 1 Mg Vial) 1 mg IM ASDIRECTED PRN PRN Reason: Hypoglycemia Heparin Sodium (Porcine) (Heparin Sodium 5,000 Units/Ml Vial) 5,000 units SUBC UT Q8H [facility] Remdesivir 100 mg/ Sodium (Chloride) 100 mls @ 100 mls/hr IV Q24H EKTA Stop: 03/08/21 16:44 Remdesivir 200 mg/ Sodium (Chloride) 250 mls @ 250 mls/hr IV ONETIME ONE Stop: 03/04/21 16:59 Insulin Aspart (Insulin Aspart 100 Units/Ml 3 Ml Pen) 0 unit SUBCUT TIDAC EKTA; Protocol Insulin Glargine (Insulin Glargine,Human Rec. Analog 100 Units/Ml 3 Ml Pen) units SUBCUT BEDTIME [facility] Non-Formulary Medication (Mycophenolate Sodium [Mycophenolic Acid]) 360 mg PO DAILY [facility] Non-Formulary Medication (Omeprazole [Omeprazole]) 40 mg PO DAILY@0700 [facility] Ondansetron HCl (Ondansetron 4 Mg/2 Ml Sdv) 4 mg IVPUSH Q4H PRN PRN Reason: Nausea Sodium Chloride (Sodium Chloride 0.9% 2.5 Ml Syringe) 2.5 ml FLUSH ASDIRECTED PRN PRN Reason: Keep Vein Open Tacrolimus (Tacrolimus 1 Mg Cap) 1 mg PO DAILY [facility] Assessment/Plan Comment:: This 75-year-old female admitted with acute hypoxic juanjo failure and Covid 1. Acute hypoxic respiratory failure/Covid 19 -Oxygen to keep sats greater than 92% nurse/RT to titrate as needed -I-S/Acapella -Coughing and deep breathing -Remdesivir 200 mg x 1 now followed by 4 days of 100 mg IV daily -Dexamethasone 6 mg p.o. daily x9 more days total of 10-day treatment -Heparin for VTE prophylaxis -Combivent -Tessalon Perles as needed cough -Droplet precautions -Monitor liver functions daily with remdesivir administration. 2. DM type II -Reports she is a very brittle diabetic. -NovoLog sliding scale, low-dose -Continue Basaglar insulin at bedtime. Usually takes 30 units will decrease to 20 monitor a.m. blood sugars. -Does have a continuous glucose monitor on but forgot her monitor at home she will discuss this with her daughter and have her daughter bring this in. -Dextrose standing orders for hypoglycemia -Monitor blood sugars 3 times daily and as needed for patient concerns of hypoglycemia. 3. Hypertension -Hold off on Lasix, spironolactone and amlodipine. Patient has softer blood pressures this afternoon on admission. -Monitor blood pressure closely and restart as possible. 4. Renal transplant recipient x2/immunocompromised -Hold prednisone as she is receiving dexamethasone. -Continue tacrolimus and mycophenolate VTE prophylaxis: Heparin GI prophylaxis: Omeprazole CODE STATUS: DNR/DNI Dispo: 2 to 4 days pending improvement.
[2021-03-04] MEDS ORDERED: REMDESIVIR 200 MG in Sodium Chloride 0.9% 250 ML IV ONE (16:00)
[2021-03-04] MEDS: Albuterol/Ipratropium 4 GM Inhalation Spray INH SCH (17:37)
[2021-03-04] MEDS: Heparin Sodium 5,000 Units/ML Vial SUBCUT SCH (17:39)
[2021-03-04] MEDS: Insulin Aspart 100 Units/ML 3 ML Pen SUBCUT SCH (17:58)
[2021-03-04] MEDS: Insulin Glargine,Human Rec. Analog 100 Units/ML 3 ML Pen SUBCUT SCH (21:00)
[2021-03-04] MEDS ORDERED: TACROLIMUS 1 MG PO SCH (21:00)
[2021-03-04] MEDS: atorvaSTATin 10 MG Tab PO SCH (21:00)
[2021-03-04] MEDS: MYCOPHENOLATE SODIUM 360 MG PO SCH (21:13)
[2021-03-05] MEDS: Albuterol/Ipratropium 4 GM Inhalation Spray INH SCH ×4 (00:33→17:21)
[2021-03-05] MEDS: Heparin Sodium 5,000 Units/ML Vial SUBCUT SCH ×3 (00:34→15:41)
[2021-03-05 06:39] LABS: BLOOD UREA NITROGEN,BUN 11 mg/dL (7.0-18.0); CHLORIDE,CL 103 mmol/L (98-107); GLUCOSE RANDOM 232 mg/dL (74-106); POTASSIUM,K 4.1 mmol/L (3.5-5.1); SODIUM,NA 137 mmol/L (136-145)
[2021-03-05] MEDS ORDERED: Omeprazole 20 MG Cap.CR PO SCH (07:00)
[2021-03-05] MEDS: MYCOPHENOLATE SODIUM 360 MG PO SCH ×2 (08:19→20:31)
[2021-03-05] MEDS: TACROLIMUS 1 MG PO SCH ×2 (08:19→20:32)
[2021-03-05] MEDS ORDERED: Tacrolimus 1 MG Cap PO SCH (09:00)
[2021-03-05] MEDS: Aspirin 81 MG Tab.Chew PO SCH (09:12)
[2021-03-05] MEDS: Gabapentin 100 MG Cap PO SCH (09:12)
[2021-03-05] MEDS: Dexamethasone 4 MG Tab PO SCH (09:13)
[2021-03-05] MEDS: Insulin Aspart 100 Units/ML 3 ML Pen SUBCUT SCH ×3 (11:45→17:21)
[2021-03-05] MEDS ORDERED: Magnesium Sulfate/Water 2 GM/50 ML Premix Bag IV ONE (13:34)
[2021-03-05] MEDS ORDERED: Magnesium Sulfate/Water 2 GM/50 ML BAG IV ONE (14:00)
--- NOTE | 2021-03-05 14:01 | PCM.PN ---
- General Info Date of Service: 03/05/21 - Review of Systems Systems Review Comment:: feels weeks, shortness of breath has improved. - Patient Data Vitals - Most Recent: Last Vital Signs Temp 36.1 C 03/05/21 09:46 Pulse 65 03/05/21 09:46 Resp 16 03/05/21 09:46 BP 110/63 03/05/21 09:46 Pulse Ox 98 03/05/21 09:46 Weight - Most Recent: 113.455 kg I&O - Last 24 Hours: Intake & Output 03/04/21 03/05/21 03/05/21 22:59 06:59 14:59 Intake Total 1050 Output Total 1600 Balance -550 Lab Results Last 24 Hours: Laboratory Results - last 24 hr 03/04/21 03/04/21 03/04/21 Range/Units 13:10 14:16 17:57 WBC (4.0-11.0) K/uL RBC (4.30-5.90) M/uL Hgb (12.0-16.0) g/dL Hct (36.0-46.0) % MCV (80.0-98.0) fL MCH (27.0-32.0) pg MCHC (31.0-37.0) g/dL RDW Std Deviation (28.0-62.0) fl RDW Coeff of Bernarda (11.0-15.0) % Plt Count (150-400) K/uL MPV (7.40-12.00) fL Neut % (Auto) (48.0-80.0) % Lymph % (Auto) (16.0-40.0) % Butler % (Auto) (0.0-15.0) % Eos % (Auto) (0.0-7.0) % Baso % (Auto) (0.0-1.5) % Neut # (Auto) (1.4-5.7) K/uL Lymph # (Auto) (0.6-2.4) K/uL Butler # (Auto) (0.0-0.8) K/uL Eos # (Auto) (0.0-0.7) K/uL Baso # (Auto) (0.0-0.1) K/uL Nucleated RBC % /100WBC Nucleated RBCs # K/uL Sodium (136-145) mmol/L Potassium (3.5-5.1) mmol/L Chloride (98-107) mmol/L Carbon Dioxide (21.0-32.0) mmol/L BUN (7.0-18.0) mg/dL Creatinine (0.6-1.0) mg/dL Est Cr Clr Drug Dosing mL/min Estimated GFR (MDRD) ml/min Glucose (74-106) mg/dL POC Glucose 101 H 214 H (70-99) mg/dL Calcium (8.5-10.1) mg/dL Magnesium (1.8-2.4) mg/dL Total Bilirubin (0.2-1.0) mg/dL AST (15-37) IU/L ALT (14-63) IU/L Alkaline Phosphatase (46-116) U/L B-Natriuretic Peptide 157 H (<100) PG/ML Total Protein (6.4-8.2) g/dL Albumin (3.4-5.0) g/dL Globulin (2.6-4.0) g/dL Albumin/Globulin Ratio (0.9-1.6) 03/05/21 03/05/21 03/05/21 Range/Units 01:49 05:45 05:45 WBC 1.61 L (4.0-11.0) K/uL RBC 4.54 (4.30-5.90) M/uL Hgb 12.4 (12.0-16.0) g/dL Hct 38.8 (36.0-46.0) % MCV 85.5 (80.0-98.0) fL MCH 27.3 (27.0-32.0) pg MCHC 32.0 (31.0-37.0) g/dL RDW Std Deviation 46.6 (28.0-62.0) fl RDW Coeff of Bernarda 15 (11.0-15.0) % Plt Count 156 (150-400) K/uL MPV 10.30 (7.40-12.00) fL Neut % (Auto) 56.5 (48.0-80.0) % Lymph % (Auto) 34.8 (16.0-40.0) % Butler % (Auto) 8.7 (0.0-15.0) % Eos % (Auto) 0.0 (0.0-7.0) % Baso % (Auto) 0.0 (0.0-1.5) % Neut # (Auto) 0.9 L (1.4-5.7) K/uL Lymph # (Auto) 0.6 (0.6-2.4) K/uL Butler # (Auto) 0.1 (0.0-0.8) K/uL Eos # (Auto) 0.0 (0.0-0.7) K/uL Baso # (Auto) 0.0 (0.0-0.1) K/uL Nucleated RBC % 0.0 /100WBC Nucleated RBCs # 0 K/uL Sodium 137 (136-145) mmol/L Potassium 4.1 (3.5-5.1) mmol/L Chloride 103 (98-107) mmol/L Carbon Dioxide 23.0 (21.0-32.0) mmol/L BUN 11 (7.0-18.0) mg/dL Creatinine 0.9 (0.6-1.0) mg/dL Est Cr Clr Drug Dosing 52.52 mL/min Estimated GFR (MDRD) > 60.0 ml/min Glucose 232 H (74-106) mg/dL POC Glucose 268 H (70-99) mg/dL Calcium 7.8 L (8.5-10.1) mg/dL Magnesium 1.6 L (1.8-2.4) mg/dL Total Bilirubin 0.5 (0.2-1.0) mg/dL AST 21 (15-37) IU/L ALT 22 (14-63) IU/L Alkaline Phosphatase 81 (46-116) U/L B-Natriuretic Peptide (<100) PG/ML Total Protein 6.4 (6.4-8.2) g/dL Albumin 2.6 L (3.4-5.0) g/dL Globulin 3.8 (2.6-4.0) g/dL Albumin/Globulin Ratio 0.7 L (0.9-1.6) 03/05/21 03/05/21 Range/Units 07:52 11:32 WBC (4.0-11.0) K/uL RBC (4.30-5.90) M/uL Hgb (12.0-16.0) g/dL Hct (36.0-46.0) % MCV (80.0-98.0) fL MCH (27.0-32.0) pg MCHC (31.0-37.0) g/dL RDW Std Deviation (28.0-62.0) fl RDW Coeff of Bernarda (11.0-15.0) % Plt Count (150-400) K/uL MPV (7.40-12.00) fL Neut % (Auto) (48.0-80.0) % Lymph % (Auto) (16.0-40.0) % Butler % (Auto) (0.0-15.0) % Eos % (Auto) (0.0-7.0) % Baso % (Auto) (0.0-1.5) % Neut # (Auto) (1.4-5.7) K/uL Lymph # (Auto) (0.6-2.4) K/uL Butler # (Auto) (0.0-0.8) K/uL Eos # (Auto) (0.0-0.7) K/uL Baso # (Auto) (0.0-0.1) K/uL Nucleated RBC % /100WBC Nucleated RBCs # K/uL Sodium (136-145) mmol/L Potassium (3.5-5.1) mmol/L Chloride (98-107) mmol/L Carbon Dioxide (21.0-32.0) mmol/L BUN (7.0-18.0) mg/dL Creatinine (0.6-1.0) mg/dL Est Cr Clr Drug Dosing mL/min Estimated GFR (MDRD) ml/min Glucose (74-106) mg/dL POC Glucose 203 H 222 H (70-99) mg/dL Calcium (8.5-10.1) mg/dL Magnesium (1.8-2.4) mg/dL Total Bilirubin (0.2-1.0) mg/dL AST (15-37) IU/L ALT (14-63) IU/L Alkaline Phosphatase (46-116) U/L B-Natriuretic Peptide (<100) PG/ML Total Protein (6.4-8.2) g/dL Albumin (3.4-5.0) g/dL Globulin (2.6-4.0) g/dL Albumin/Globulin Ratio (0.9-1.6) Med Orders - Current: Current Medications Acetaminophen (Acetaminophen 325 Mg Tab) 650 mg PO Q4H PRN PRN Reason: Pain (Mild 1-3)/fever Albuterol/Ipratropium (Albuterol/Ipratropium 4 Gm Inhalation [place]) 0 gm INH QID [facility] Last Admin: 03/05/21 11:41 Dose: 1 puff Documented by: Aspirin (Aspirin 81 Mg Tab.Chew) 81 mg PO DAILY [facility] Last Admin: 03/05/21 09:12 Dose: 81 mg Documented by: Atorvastatin Calcium (Atorvastatin 10 Mg Tab) 10 mg PO BEDTIME [facility] Last Admin: 03/04/21 21:00 Dose: 10 mg Documented by: Dexamethasone (Dexamethasone 4 Mg Tab) 6 mg PO DAILY [facility] Stop: 03/13/21 09:01 Last Admin: 03/05/21 09:13 Dose: 6 mg Documented by: Dextrose/Water (50% Dextrose In Water 50 Ml Syringe) 50 ml IV ASDIRECTED PRN PRN Reason: Hypoglycemia Gabapentin (Gabapentin 100 Mg Cap) 100 mg PO DAILY [facility] Last Admin: 03/05/21 09:12 Dose: 100 mg Documented by: Glucagon (Glucagon,Human Recombinant 1 Mg Vial) 1 mg IM ASDIRECTED PRN PRN Reason: Hypoglycemia Heparin Sodium (Porcine) (Heparin Sodium 5,000 Units/Ml Vial) 5,000 units SUBCUT Q8H [facility] Last Admin: 03/05/21 09:11 Dose: 5,000 units Documented by: Remdesivir 100 mg/ Sodium (Chloride) 100 mls @ 100 mls/hr IV Q24H [facility] Stop: 03/08/21 16:44 Insulin Aspart (Insulin Aspart 100 Units/Ml 3 Ml Pen) 0 unit SUBCUT TIDAC [facility]; Protocol Last Admin: 03/05/21 12:03 Dose: 2 units Documented by: Insulin Glargine (Insulin Glargine,Human Rec. Analog 100 Units/Ml 3 Ml Pen) 20 units SUBCUT BEDTIME [facility] Last Admin: 03/04/21 21:00 Dose: 20 units Documented by: Omeprazole (Omeprazole 20 Mg Cap.Cr) 40 mg PO DAILY@0700 [facility] Last Admin: 03/05/21 07:44 Dose: 40 mg Documented by: Ondansetron HCl (Ondansetron 4 Mg/2 Ml Sdv) 4 mg IVPUSH Q4H PRN PRN Reason: Nausea Mycophenolate Sodium 360 Mg Tablet.Dr Pt Own 1 each PO BID [facility] Last Admin: 03/05/21 08:19 Dose: 1 each Documented by: Sodium Chloride (Sodium Chloride 0.9% 2.5 Ml Syringe) 2.5 ml FLUSH ASDIRECTED PRN PRN Reason: Keep Vein Open Tacrolimus (Tacrolimus 1 Mg CapPtom) 1 mg PO Q12HR [facility] Last Admin: 03/05/21 08:19 Dose: 1 mg Documented by: Discontinued Medications Dexamethasone (Dexamethasone 10 Mg/Ml Sdv) 6 mg IVPUSH ONETIME ONE Stop: 03/04/21 12:46 Last Admin: 03/04/21 13:18 Dose: 6 mg Documented by: Sodium Chloride (Normal Saline) 500 mls @ 999 mls/hr IV .BOLUS [facility] Last Admin: 03/04/21 13:16 Dose: 999 mls/hr Documented by: Remdesivir 200 mg/ Sodium (Chloride) 250 mls @ 250 mls/hr IV ONETIME ONE Stop: 03/04/21 16:59 Last Admin: 03/04/21 17:42 Dose: 250 mls/hr Documented by: Ondansetron HCl (Ondansetron 4 Mg/2 Ml Sdv) 4 mg IVPUSH ONETIME ONE Stop: 03/04/21 12:48 Last Admin: 03/04/21 13:16 Dose: 4 mg Documented by: Sodium Chloride (Sodium Chloride 0.9% 10 Ml Syringe) 10 ml FLUSH ASDIRECTED PRN PRN Reason: Keep Vein Open Last Admin: 03/04/21 13:19 Dose: 10 ml Documented by: Sodium Chloride (Sodium Chloride 0.9% 2.5 Ml Syringe) 2.5 ml FLUSH ASDIRECTED PRN PRN Reason: Keep Vein Open Last Admin: 03/04/21 13:19 Dose: 2.5 ml Documented by: Tacrolimus (Tacrolimus 1 Mg Cap) 1 mg PO DAILY [facility] Tacrolimus (Tacrolimus 1 Mg CapPt Own) 2 mg PO Q12H [facility] Last Admin: 03/04/21 21:13 Dose: 1 mg Documented by: - Exam General: Alert, Oriented Neck: Supple Lungs: Clear to Auscultation, Normal Respiratory Effort Cardiovascular: Regular Rate, Regular Rhythm GI/Abdominal Exam: Normal Bowel Sounds, Soft, Non-Tender Extremities: Non-Tender, No Pedal Edema Skin: Warm, Dry, Intact Neurological: No New Focal Deficit - Patient Data Lab Results Last 24 hrs: Laboratory Results - last 24 hr 03/04/21 03/04/21 03/04/21 Range/Units 13:10 14:16 17:57 WBC (4.0-11.0) K/uL RBC (4.30-5.90) M/uL Hgb (12.0-16.0) g/dL Hct (36.0-46.0) % MCV (80.0-98.0) fL MCH (27.0-32.0) pg MCHC (31.0-37.0) g/dL RDW Std Deviation (28.0-62.0) fl RDW Coeff of Bernarda (11.0-15.0) % Plt Count (150-400) K/uL MPV (7.40-12.00) fL Neut % (Auto) (48.0-80.0) % Lymph % (Auto) (16.0-40.0) % Butler % (Auto) (0.0-15.0) % Eos % (Auto) (0.0-7.0) % Baso % (Auto) (0.0-1.5) % Neut # (Auto) (1.4-5.7) K/uL Lymph # (Auto) (0.6-2.4) K/uL Butler # (Auto) (0.0-0.8) K/uL Eos # (Auto) (0.0-0.7) K/uL Baso # (Auto) (0.0-0.1) K/uL Nucleated RBC % /100WBC Nucleated RBCs # K/uL Sodium (136-145) mmol/L Potassium (3.5-5.1) mmol/L Chloride (98-107) mmol/L Carbon Dioxide (21.0-32.0) mmol/L BUN (7.0-18.0) mg/dL Creatinine (0.6-1.0) mg/dL Est Cr Clr Drug Dosing mL/min Estimated GFR (MDRD) ml/min Glucose (74-106) mg/dL POC Glucose 101 H 214 H (70-99) mg/dL Calcium (8.5-10.1) mg/dL Magnesium (1.8-2.4) mg/dL Total Bilirubin (0.2-1.0) mg/dL AST (15-37) IU/L ALT (14-63) IU/L Alkaline Phosphatase (46-116) U/L B-Natriuretic Peptide 157 H (<100) PG/ML Total Protein (6.4-8.2) g/dL Albumin (3.4-5.0) g/dL Globulin (2.6-4.0) g/dL Albumin/Globulin Ratio (0.9-1.6) 03/05/21 03/05/21 03/05/21 Range/Units 01:49 05:45 05:45 WBC 1.61 L (4.0-11.0) K/uL RBC 4.54 (4.30-5.90) M/uL Hgb 12.4 (12.0-16.0) g/dL Hct 38.8 (36.0-46.0) % MCV 85.5 (80.0-98.0) fL MCH 27.3 (27.0-32.0) pg MCHC 32.0 (31.0-37.0) g/dL RDW Std Deviation 46.6 (28.0-62.0) fl RDW Coeff of Bernarda 15 (11.0-15.0) % Plt Count 156 (150-400) K/uL MPV 10.30 (7.40-12.00) fL Neut % (Auto) 56.5 (48.0-80.0) % Lymph % (Auto) 34.8 (16.0-40.0) % Butler % (Auto) 8.7 (0.0-15.0) % Eos % (Auto) 0.0 (0.0-7.0) % Baso % (Auto) 0.0 (0.0-1.5) % Neut # (Auto) 0.9 L (1.4-5.7) K/uL Lymph # (Auto) 0.6 (0.6-2.4) K/uL Butler # (Auto) 0.1 (0.0-0.8) K/uL Eos # (Auto) 0.0 (0.0-0.7) K/uL Baso # (Auto) 0.0 (0.0-0.1) K/uL Nucleated RBC % 0.0 /100WBC Nucleated RBCs # 0 K/uL Sodium 137 (136-145) mmol/L Potassium 4.1 (3.5-5.1) mmol/L Chloride 103 (98-107) mmol/L Carbon Dioxide 23.0 (21.0-32.0) mmol/L BUN 11 (7.0-18.0) mg/dL Creatinine 0.9 (0.6-1.0) mg/dL Est Cr Clr Drug Dosing 52.52 mL/min Estimated GFR (MDRD) > 60.0 ml/min Glucose 232 H (74-106) mg/dL POC Glucose 268 H (70-99) mg/dL Calcium 7.8 L (8.5-10.1) mg/dL Magnesium 1.6 L (1.8-2.4) mg/dL Total Bilirubin 0.5 (0.2-1.0) mg/dL AST 21 (15-37) IU/L ALT 22 (14-63) IU/L Alkaline Phosphatase 81 (46-116) U/L B-Natriuretic Peptide (<100) PG/ML Total Protein 6.4 (6.4-8.2) g/dL Albumin 2.6 L (3.4-5.0) g/dL Globulin 3.8 (2.6-4.0) g/dL Albumin/Globulin Ratio 0.7 L (0.9-1.6) 03/05/21 03/05/21 Range/Units 07:52 11:32 WBC (4.0-11.0) K/uL RBC (4.30-5.90) M/uL Hgb (12.0-16.0) g/dL Hct (36.0-46.0) % MCV (80.0-98.0) fL MCH (27.0-32.0) pg MCHC (31.0-37.0) g/dL RDW Std Deviation (28.0-62.0) fl RDW Coeff of Bernarda (11.0-15.0) % Plt Count (150-400) K/uL MPV (7.40-12.00) fL Neut % (Auto) (48.0-80.0) % Lymph % (Auto) (16.0-40.0) % Butler % (Auto) (0.0-15.0) % Eos % (Auto) (0.0-7.0) % Baso % (Auto) (0.0-1.5) % Neut # (Auto) (1.4-5.7) K/uL Lymph # (Auto) (0.6-2.4) K/uL Butler # (Auto) (0.0-0.8) K/uL Eos # (Auto) (0.0-0.7) K/uL Baso # (Auto) (0.0-0.1) K/uL Nucleated RBC % /100WBC Nucleated RBCs # K/uL Sodium (136-145) mmol/L Potassium (3.5-5.1) mmol/L Chloride (98-107) mmol/L Carbon Dioxide (21.0-32.0) mmol/L BUN (7.0-18.0) mg/dL Creatinine (0.6-1.0) mg/dL Est Cr Clr Drug Dosing mL/min Estimated GFR (MDRD) ml/min Glucose (74-106) mg/dL POC Glucose 203 H 222 H (70-99) mg/dL Calcium (8.5-10.1) mg/dL Magnesium (1.8-2.4) mg/dL Total Bilirubin (0.2-1.0) mg/dL AST (15-37) IU/L ALT (14-63) IU/L Alkaline Phosphatase (46-116) U/L B-Natriuretic Peptide (<100) PG/ML Total Protein (6.4-8.2) g/dL Albumin (3.4-5.0) g/dL Globulin (2.6-4.0) g/dL Albumin/Globulin Ratio (0.9-1.6) Result Diagrams: 03/05/21 05:45 03/05/21 05:45 Sepsis Event Note - Evaluation Sepsis Screening Result: No Definite Risk - Focused Exam Vital Signs: Vital Signs Temp Pulse Resp BP Pulse Ox 03/05/21 09:46 36.1 C 65 16 110/63 98 03/05/21 05:46 36.4 C 56 L 16 105/56 L 95 03/05/21 04:00 36.1 C 61 19 96/61 92 L - Problem List Review Problem List Initiated/Reviewed/Updated: Yes - My Orders Last 24 Hours: My Active Orders 03/06/21 05:11 CBC WITH AUTO DIFF [HEME] AM COMPREHENSIVE METABOLIC PN,CMP [CHEM] AM - Plan Plan:: This 75-year-old female admitted with acute hypoxic juanjo failure and Covid 1. Acute hypoxic respiratory failure/Covid 19 -Oxygen to keep sats greater than 92% nurse/RT to titrate as needed -I-S/Acapella -Coughing and deep breathing -Remdesivir 100 mg IV daily -Dexamethasone 6 mg p.o. daily x8 more days total of 10-day treatment -Heparin for VTE prophylaxis -Combivent -Tessalon Perles as needed cough -Droplet precautions -Monitor liver functions daily with remdesivir administration. 2. DM type II -NovoLog sliding scale, low-dose -Continue Basaglar insulin at bedtime. Usually takes 30 units decreased to 20 monitor a.m. blood sugars. 3. Hypertension -Hold off on Lasix, spironolactone and amlodipine. Patient has softer blood pr essures this afternoon on admission. -Monitor blood pressure closely and restart as possible. 4. Renal transplant recipient x2/immunocompromised -Hold prednisone as she is receiving dexamethasone. -Continue tacrolimus and mycophenolate VTE prophylaxis: Heparin GI prophylaxis: Omeprazole CODE STATUS: DNR/DNI Dispo: 2 to 4 days pending improvement.
[2021-03-05] MEDS: REMDESIVIR 100 MG in Sodium Chloride 0.9% 100 ML IV SCH (15:42)
[2021-03-05] MEDS: atorvaSTATin 10 MG Tab PO SCH (20:30)
[2021-03-05] MEDS: Insulin Glargine,Human Rec. Analog 100 Units/ML 3 ML Pen SUBCUT SCH (20:36)
[2021-03-06] MEDS: Heparin Sodium 5,000 Units/ML Vial SUBCUT SCH ×4 (00:08→23:59)
[2021-03-06] MEDS: Albuterol/Ipratropium 4 GM Inhalation Spray INH SCH ×5 (00:10→23:57)
[2021-03-06 07:33] LABS: CARBON DIOXIDE,CO2 28.1 mmol/L (21.0-32.0); POTASSIUM,K 4.3 mmol/L (3.5-5.1)
[2021-03-06] MEDS: Insulin Aspart 100 Units/ML 3 ML Pen SUBCUT SCH ×3 (07:43→17:11)
[2021-03-06] MEDS: Gabapentin 100 MG Cap PO SCH (09:10)
[2021-03-06] MEDS: Aspirin 81 MG Tab.Chew PO SCH (09:10)
[2021-03-06] MEDS: TACROLIMUS 1 MG PO SCH ×2 (09:48→20:40)
[2021-03-06] MEDS: MYCOPHENOLATE SODIUM 360 MG PO SCH ×2 (09:48→20:39)
[2021-03-06] MEDS: Dexamethasone 4 MG Tab PO SCH (10:13)
--- NOTE | 2021-03-06 14:13 | PCM.PN ---
- General Info Date of Service: 03/06/21 - Review of Systems Systems Review Comment:: patient feeling better, shortness of breath has improved. strength is returning. - Patient Data Vitals - Most Recent: Last Vital Signs Temp 34.8 C L 03/06/21 12:07 Pulse 72 03/06/21 12:07 Resp 16 03/06/21 12:07 BP 119/66 03/06/21 12:07 Pulse Ox 93 L 03/06/21 12:07 Weight - Most Recent: 113.035 kg I&O - Last 24 Hours: Intake & Output 03/05/21 03/06/21 03/06/21 22:59 06:59 14:59 Intake Total 4100 1300 Output Total 2100 2450 Balance 2000 -1150 Lab Results Last 24 Hours: Laboratory Results - last 24 hr 03/05/21 03/06/21 03/06/21 Range/Units 17:09 06:20 06:20 WBC 2.79 L (4.0-11.0) K/uL RBC 4.82 (4.30-5.90) M/uL Hgb 13.2 (12.0-16.0) g/dL Hct 41.3 (36.0-46.0) % MCV 85.7 (80.0-98.0) fL MCH 27.4 (27.0-32.0) pg MCHC 32.0 (31.0-37.0) g/dL RDW Std Deviation 46.2 (28.0-62.0) fl RDW Coeff of Bernarda 15 (11.0-15.0) % Plt Count 198 (150-400) K/uL MPV 10.50 (7.40-12.00) fL Neut % (Auto) 63.4 (48.0-80.0) % Lymph % (Auto) 27.6 (16.0-40.0) % [place] % (Auto) 9.0 (0.0-15.0) % Eos % (Auto) 0.0 (0.0-7.0) % Baso % (Auto) 0.0 (0.0-1.5) % Neut # (Auto) 1.8 (1.4-5.7) K/uL Lymph # (Auto) 0.8 (0.6-2.4) K/uL [place] # (Auto) 0.3 (0.0-0.8) K/uL Eos # (Auto) 0.0 (0.0-0.7) K/uL Baso # (Auto) 0.0 (0.0-0.1) K/uL Nucleated RBC % 0.0 /100WBC Nucleated RBCs # 0 K/uL Sodium 138 (136-145) mmol/L Potassium 4.3 (3.5-5.1) mmol/L Chloride 102 (98-107) mmol/L Carbon Dioxide 28.1 (21.0-32.0) mmol/L BUN 15 (7.0-18.0) mg/dL Creatinine 1.0 (0.6-1.0) mg/dL Est Cr Clr Drug Dosing 47.27 mL/min Estimated GFR (MDRD) 54.1 ml/min Glucose 217 H (74-106) mg/dL POC Glucose 274 H (70-99) mg/dL Calcium 8.4 L (8.5-10.1) mg/dL Total Bilirubin 0.5 (0.2-1.0) mg/dL AST 21 (15-37) IU/L ALT 25 (14-63) IU/L Alkaline Phosphatase 85 (46-116) U/L Total Protein 6.7 (6.4-8.2) g/dL Albumin 2.8 L (3.4-5.0) g/dL Globulin 3.9 (2.6-4.0) g/dL Albumin/Globulin Ratio 0.7 L (0.9-1.6) 03/06/21 Range/Units 11:23 WBC (4.0-11.0) K/uL RBC (4.30-5.90) M/uL Hgb (12.0-16.0) g/dL Hct (36.0-46.0) % MCV (80.0-98.0) fL MCH (27.0-32.0) pg MCHC (31.0-37.0) g/dL RDW Std Deviation (28.0-62.0) fl RDW Coeff of Bernarda (11.0-15.0) % Plt Count (150-400) K/uL MPV (7.40-12.00) fL Neut % (Auto) (48.0-80.0) % Lymph % (Auto) (16.0-40.0) % [place] % (Auto) (0.0-15.0) % Eos % (Auto) (0.0-7.0) % Baso % (Auto) (0.0-1.5) % Neut # (Auto) (1.4-5.7) K/uL Lymph # (Auto) (0.6-2.4) K/uL [place] # (Auto) (0.0-0.8) K/uL Eos # (Auto) (0.0-0.7) K/uL Baso # (Auto) (0.0-0.1) K/uL Nucleated RBC % /100WBC Nucleated RBCs # K/uL Sodium (136-145) mmol/L Potassium (3.5-5.1) mmol/L Chloride (98-107) mmol/L Carbon Dioxide (21.0-32.0) mmol/L BUN (7.0-18.0) mg/dL Creatinine (0.6-1.0) mg/dL Est Cr Clr Drug Dosing mL/min Estimated GFR (MDRD) ml/min Glucose (74-106) mg/dL POC Glucose 122 H (70-99) mg/dL Calcium (8.5-10.1) mg/dL Total Bilirubin (0.2-1.0) mg/dL AST (15-37) IU/L ALT (14-63) IU/L Alkaline Phosphatase (46-116) U/L Total Protein (6.4-8.2) g/dL Albumin (3.4-5.0) g/dL Globulin (2.6-4.0) g/dL Albumin/Globulin Ratio (0.9-1.6) Med Orders - Current: Current Medications Acetaminophen (Acetaminophen 325 Mg Tab) 650 mg PO Q4H PRN PRN Reason: Pain (Mild 1-3)/fever Last Admin: 03/05/21 20:32 Dose: 650 mg Documented by: Albuterol/Ipratropium (Albuterol/Ipratropium 4 Gm Inhalation [place]) 0 gm INH QI D [facility] Last Admin: 03/06/21 12:04 Dose: 1 puff Documented by: Aspirin (Aspirin 81 Mg Tab.Chew) 81 mg PO DAILY [facility] Last Admin: 03/06/21 09:10 Dose: 81 mg Documented by: Atorvastatin Calcium (Atorvastatin 10 Mg Tab) 10 mg PO BEDTIME [facility] Last Admin: 03/05/21 20:30 Dose: 10 mg Documented by: Dexamethasone (Dexamethasone 4 Mg Tab) 6 mg PO DAILY [facility] Stop: 03/13/21 09:01 Last Admin: 03/06/21 10:13 Dose: 6 mg Documented by: Dextrose/Water (50% Dextrose In Water 50 Ml Syringe) 50 ml IV ASDIRECTED PRN PRN Reason: Hypoglycemia Gabapentin (Gabapentin 100 Mg Cap) 100 mg PO DAILY [facility] Last Admin: 03/06/21 09:10 Dose: 100 mg Documented by: Glucagon (Glucagon,Human Recombinant 1 Mg Vial) 1 mg IM ASDIRECTED PRN PRN Reason: Hypoglycemia Heparin Sodium (Porcine) (Heparin Sodium 5,000 Units/Ml Vial) 5,000 units SUBCUT Q8H [facility] Last Admin: 03/06/21 09:10 Dose: 5,000 units Documented by: Remdesivir 100 mg/ Sodium (Chloride) 100 mls @ 100 mls/hr IV Q24H [facility] Stop: 03/08/21 16:44 Last Admin: 03/05/21 15:42 Dose: 100 mls/hr Documented by: Insulin Aspart (Insulin Aspart 100 Units/Ml 3 Ml Pen) 0 unit SUBCUT TIDAC [facility]; Protocol Last Admin: 03/06/21 12:03 Dose: Not Given Documented by: Insulin Glargine (Insulin Glargine,Human Rec. Analog 100 Units/Ml 3 Ml Pen) 20 units SUBCUT BEDTIME [facility] Last Admin: 03/05/21 20:36 Dose: 20 units Documented by: Omeprazole (Omeprazole 20 Mg Cap.Cr) 40 mg PO BEDTIME [facility] Ondansetron HCl (Ondansetron 4 Mg/2 Ml Sdv) 4 mg IVPUSH Q4H PRN PRN Reason: Nausea Mycophenolate Sodium 360 Mg Tablet.Dr Pt Own 1 each PO BID [facility] Last Admin: 03/06/21 09:48 Dose: 1 each Documented by: Sodium Chloride (Sodium Chloride 0.9% 2.5 Ml Syringe) 2.5 ml FLUSH ASDIRECTED PRN PRN Reason: Keep Vein Open Last Admin: 03/06/21 09:10 Dose: 2.5 ml Documented by: Tacrolimus (Tacrolimus 1 Mg CapPtom) 1 mg PO Q12HR [facility] Last Admin: 03/06/21 09:48 Dose: 1 mg Documented by: Discontinued Medications Dexamethasone (Dexamethasone 10 Mg/Ml Sdv) 6 mg IVPUSH ONETIME ONE Stop: 03/04/21 12:46 Last Admin: 03/04/21 13:18 Dose: 6 mg Documented by: Sodium Chloride (Normal Saline) 500 mls @ 999 mls/hr IV .BOLUS [facility] Last Admin: 03/04/21 13:16 Dose: 999 mls/hr Documented by: Remdesivir 200 mg/ Sodium (Chloride) 250 mls @ 250 mls/hr IV ONETIME ONE Stop: 03/04/21 16:59 Last Admin: 03/04/21 17:42 Dose: 250 mls/hr Documented by: Magnesium Sulfate (Magnesium Sulfate In Water 2 Gm/50 Ml) 2 gm in 50 mls @ 50 mls/hr IV ONETIME ONE Stop: 03/05/21 14:59 Last Admin: 03/05/21 14:27 Dose: 50 mls/hr Documented by: Omeprazole (Omeprazole 20 Mg Cap.Cr) 40 mg PO DAILY@0700 [facility] Last Admin: 03/05/21 07:44 Dose: 40 mg Documented by: Ondansetron HCl (Ondansetron 4 Mg/2 Ml Sdv) 4 mg IVPUSH ONETIME ONE Stop: 03/04/21 12:48 Last Admin: 03/04/21 13:16 Dose: 4 mg Documented by: Sodium Chloride (Sodium Chloride 0.9% 10 Ml Syringe) 10 ml FLUSH ASDIRECTED PRN PRN Reason: Keep Vein Open Last Admin: 03/04/21 13:19 Dose: 10 ml Documented by: Sodium Chloride (Sodium Chloride 0.9% 2.5 Ml Syringe) 2.5 ml FLUSH ASDIRECTED PRN PRN Reason: Keep Vein Open Last Admin: 03/04/21 13:19 Dose: 2.5 ml Documented by: Tacrolimus (Tacrolimus 1 Mg Cap) 1 mg PO DAILY [facility] Tacrolimus (Tacrolimus 1 Mg CapPt Own) 2 mg PO Q12H [facility] Last Admin: 03/04/21 21:13 Dose: 1 mg Documented by: - Exam General: Alert, Oriented Neck: Supple Lungs: Clear to Auscultation, Normal Respiratory Effort Cardiovascular: Regular Rate, Regular Rhythm GI/Abdominal Exam: Soft, Non-Tender, No Distention Extremities: Non-Tender, No Pedal Edema Skin: Warm, Dry, Intact Neurological: No New Focal Deficit - Patient Data Lab Results Last 24 hrs: Laboratory Results - last 24 hr 03/05/21 03/06/21 03/06/21 Range/Units 17:09 06:20 06:20 WBC 2.79 L (4.0-11.0) K/uL RBC 4.82 (4.30-5.90) M/uL Hgb 13.2 (12.0-16.0) g/dL Hct 41.3 (36.0-46.0) % MCV 85.7 (80.0-98.0) fL MCH 27.4 (27.0-32.0) pg MCHC 32.0 (31.0-37.0) g/dL RDW Std Deviation 46.2 (28.0-62.0) fl RDW Coeff of Bernarda 15 (11.0-15.0) % Plt Count 198 (150-400) K/uL MPV 10.50 (7.40-12.00) fL Neut % (Auto) 63.4 (48.0-80.0) % Lymph % (Auto) 27.6 (16.0-40.0) % [place] % (Auto) 9.0 (0.0-15.0) % Eos % (Auto) 0.0 (0.0-7.0) % Baso % (Auto) 0.0 (0.0-1.5) % Neut # (Auto) 1.8 (1.4-5.7) K/uL Lymph # (Auto) 0.8 (0.6-2.4) K/uL [place] # (Auto) 0.3 (0.0-0.8) K/uL Eos # (Auto) 0.0 (0.0-0.7) K/uL Baso # (Auto) 0.0 (0.0-0.1) K/uL Nucleated RBC % 0.0 /100WBC Nucleated RBCs # 0 K/uL Sodium 138 (136-145) mmol/L Potassium 4.3 (3.5-5.1) mmol/L Chloride 102 (98-107) mmol/L Carbon Dioxide 28.1 (21.0-32.0) mmol/L BUN 15 (7.0-18.0) mg/dL Creatinine 1.0 (0.6-1.0) mg/dL Est Cr Clr Drug Dosing 47.27 mL/min Estimated GFR (MDRD) 54.1 ml/min Glucose 217 H (74-106) mg/dL POC Glucose 274 H (70-99) mg/dL Calcium 8.4 L (8.5-10.1) mg/dL Total Bilirubin 0.5 (0.2-1.0) mg/dL AST 21 (15-37) IU/L ALT 25 (14-63) IU/L Alkaline Phosphatase 85 (46-116) U/L Total Protein 6.7 (6.4-8.2) g/dL Albumin 2.8 L (3.4-5.0) g/dL Globulin 3.9 (2.6-4.0) g/dL Albumin/Globulin Ratio 0.7 L (0.9-1.6) 03/06/21 Range/Units 11:23 WBC (4.0-11.0) K/uL RBC (4.30-5.90) M/uL Hgb (12.0-16.0) g/dL Hct (36.0-46.0) % MCV (80.0-98.0) fL MCH (27.0-32.0) pg MCHC (31.0-37.0) g/dL RDW Std Deviation (28.0-62.0) fl RDW Coeff of Bernarda (11.0-15.0) % Plt Count (150-400) K/uL MPV (7.40-12.00) fL Neut % (Auto) (48.0-80.0) % Lymph % (Auto) (16.0-40.0) % [place] % (Auto) (0.0-15.0) % Eos % (Auto) (0.0-7.0) % Baso % (Auto) (0.0-1.5) % Neut # (Auto) (1.4-5.7) K/uL Lymph # (Auto) (0.6-2.4) K/uL [place] # (Auto) (0.0-0.8) K/uL Eos # (Auto) (0.0-0.7) K/uL Baso # (Auto) (0.0-0.1) K/uL Nucleated RBC % /100WBC Nucleated RBCs # K/uL Sodium (136-145) mmol/L Potassium (3.5-5.1) mmol/L Chloride (98-107) mmol/L Carbon Dioxide (21.0-32.0) mmol/L BUN (7.0-18.0) mg/dL Creatinine (0.6-1.0) mg/dL Est Cr Clr Drug Dosing mL/min Estimated GFR (MDRD) ml/min Glucose (74-106) mg/dL POC Glucose 122 H (70-99) mg/dL Calcium (8.5-10.1) mg/dL Total Bilirubin (0.2-1.0) mg/dL AST (15-37) IU/L ALT (14-63) IU/L Alkaline Phosphatase (46-116) U/L Total Protein (6.4-8.2) g/dL Albumin (3.4-5.0) g/dL Globulin (2.6-4.0) g/dL Albumin/Globulin Ratio (0.9-1.6) Result Diagrams: 03/06/21 06:20 03/06/21 06:20 Sepsis Event Note - Evaluation Sepsis Screening Result: No Definite Risk - Focused Exam Vital Signs: Vital Signs Temp Pulse Resp BP BP Pulse Ox 03/06/21 12:07 34.8 C L 72 16 119/66 93 L 03/06/21 09:00 36.1 C 74 16 101/60 93 L 03/06/21 04:05 36.1 C 55 L 19 112/59 L 92 L - Problem List Review Problem List Initiated/Reviewed/Updated: Yes - My Orders Last 24 Hours: My Active Orders 03/06/21 05:11 MAGNESIUM [CHEM] AM - Plan Plan:: This 75-year-old female admitted with acute hypoxic juanjo failure and Covid 1. Acute hypoxic respiratory failure/Covid 19 -Oxygen to keep sats greater than 92% nurse/RT to titrate as needed -I-S/Acapella -Coughing and deep breathing -Remdesivir 100 mg IV daily -Dexamethasone 6 mg p.o. daily x8 more days total of 10-day treatment -Heparin for VTE prophylaxis -Combivent -Tessalon Perles as needed cough -Droplet precautions -Monitor liver functions daily with remdesivir administration. 2. DM type II -NovoLog sliding scale, low-dose -Continue Basaglar insulin at bedtime. Usually takes 30 units decreased to 20 monitor a.m. blood sugars. 3. Hypertension -Hold off on Lasix, spironolactone and amlodipine. Patient has softer blood pressures this afternoon on admission. -Monitor blood pressure closely and restart as possible. 4. Renal transplant recipient x2/immunocompromised -Hold prednisone as she is receiving dexamethasone. -Continue tacrolimus and mycophenolate VTE prophylaxis: Heparin GI prophylaxis: Omeprazole CODE STATUS: DNR/DNI Dispo: 2 to 4 days pending improvement.
--- NOTE | 2021-03-06 14:13 | PCM.DCSUM1 ---
Discharge Summary - Discharge Data Discharge Date: 03/07/21 Discharge Disposition: Home, Self-Care 01 Condition: Good - Referral to Home Health Primary Care Physician: PCP Not In Area - Patient Summary/Data Hospital Course: History of present Illness: This 75-year-old female with past medical history of hypertension, renal insufficiency with transplants x2 in 2008 2015, DM type II presented to the ER with complaints of worsening shortness of breath as well as fatigue, diarrhea, nausea and vomiting. She was diagnosed with COVID-19 03/02/2021. She reports she had antibody infusion yesterday 03/03/2021 and felt relatively well after that. However overnight she reports oxygen saturations did dip to 88% and she had worsening of shortness of breath. Today she is feeling worse in regards to shortness of breath fatigue and abdominal symptoms such as diarrhea nausea vomiting. She denies any chest pain she denies shortness of breath worsens with laying down. She reports shortness of breath is worsened with exertion and cough. She denies any abdominal pain no black or bloody bowel movements and no extremity pain or swelling. Stools are more loose and soft not necessarily maira rrhea. She does report appetite is quite poor and has been cutting back on insulin usage at home. She reports she is a very brittle diabetic has not been taking her NovoLog with meals as she is not eating much. She has continued to take her Basaglar 30 units at bedtime. She reports if blood sugar gets close to 100 she needs to have something to eat or she will crash very suddenly. She denies any recreational drug use no tobacco use and no alcohol use. In the ER slight leukopenia noted at 3.21. Platelets 143,000. Sodium 138, potassium 3.6, BUN 9 creatinine 1.0. Glucose 113 AST ALT and total bilirubin within normal limits. Troponin negative. BNP slightly elevated at 157. Chest x-ray obtained which reveals central peribronchial infiltrates could represent bronchitis CHF or fluid overload remainder of exam is unremarkable. Vital signs while in the ER noted to have blood pressures 100s/50s heart rate 60s she was noted to be hypoxic 85% on room air respiratory rate is 20 afebrile. In the ER she was treated with Decadron 6 mg IV push along with Zofran and a 500 mL bolus. She will be admitted inpatient for acute hypoxic respiratory failure secondary to COVID-19. She reports approximately 1 month ago she did complete her Moderna Covid vaccine schedule. Hospital Course: Patient was treated with Remdesivir and dexamethasone and weaned off oxygen quickly. Her 2nd hospital day patient reported generalized weakness but respiratory symptoms had greatly improved. 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 Patient was discharged home and is to have follow up with primary care physician. - Discharge Plan *PRESCRIPTION DRUG MONITORING PROGRAM REVIEWED*: Not Applicable *COPY OF PRESCRIPTION DRUG MONITORING REPORT IN PATIENT PRASHANT: Not Applicable Prescriptions/Med Rec: Albuterol Sulfate [Albuterol Sulfate HFA] 8.5 gm INH Q6H PRN #1 inhaler PRN Reason: Wheezing Home Medications: Home Meds Blood-Glucose Meter,Continuous [Dexcom] 1 dose SUBCUT ASDIRECTED 03/02/21 [History] Docusate Sodium 100 mg PO DAILY PRN 03/02/21 [History] Furosemide [Lasix] 20 mg PO DAILY PRN 03/02/21 [History] Gabapentin [Neurontin] 100 mg PO DAILY 03/02/21 [History] Glimepiride 1 mg PO DAILY 03/02/21 [History] Insulin Aspart [NovoLOG] 1 dose SUBCUT ASDIRECTED 03/02/21 [History] Insulin Glargine,Hum.Rec.Anlog [Basaglar Kwikpen U-100] 1 dose SUBCUT ASDIRECTED 03/02/21 [History] Magnesium Oxide [Magnesium] 400 mg PO DAILY 03/02/21 [History] Mycophenolate Sodium [Mycophenolic Acid] 360 mg PO BID 03/02/21 [History] Omeprazole 40 mg PO DAILY 03/02/21 [History] Spironolactone [Aldactone] 25 mg PO DAILY PRN 03/02/21 [History] Tacrolimus [Prograf] 1 mg PO Q12H 03/02/21 [History] Zolpidem [Ambien] 10 mg PO DAILY 03/02/21 [History] amLODIPine [Norvasc] 5 mg PO DAILY 03/02/21 [History] atorvaSTATin [Lipitor] 10 mg PO DAILY 03/02/21 [History] polyethylene glycoL 3350 [MiraLAX] 1 dose PO ASDIRECTED 03/02/21 [History] predniSONE [Prednisone] 5 mg PO DAILY 03/02/21 [History] Albuterol Sulfate [Albuterol Sulfate HFA] 8.5 gm INH Q6H PRN #1 inhaler 03/06/21 [Rx] Patient Handouts: COVID-19 Frequently Asked Questions, COVID-19 Vaccine Information, Albuterol inhalation aerosol, COVID-19: How to Protect Yourself and Others - [facility] Referrals: Verónica Brown MD [Ordering Only Provider] - - Discharge Summary/Plan Comment DC Time >30 min.: No - Patient Data Vitals - Most Recent: Last Vital Signs Temp 34.8 C L 03/06/21 12:07 Pulse 72 03/06/21 12:07 Resp 16 03/06/21 12:07 BP 119/66 03/06/21 12:07 Pulse Ox 93 L 03/06/21 12:07 Weight - Most Recent: 113.035 kg I&O - Last 24 hours: Intake & Output 03/05/21 03/06/21 03/06/21 22:59 06:59 14:59 Intake Total 4100 1300 Output Total 2100 2450 Balance 1999 -1150 Lab Results - Last 24 hrs: Laboratory Results - last 24 hr 03/05/21 03/06/21 03/06/21 Range/Units 17:09 06:20 06:20 WBC 2.79 L (4.0-11.0) K/uL RBC 4.82 (4.30-5.90) M/uL Hgb 13.2 (12.0-16.0) g/dL Hct 41.3 (36.0-46.0) % MCV 85.7 (80.0-98.0) fL MCH 27.4 (27.0-32.0) pg MCHC 32.0 (31.0-37.0) g/dL RDW Std Deviation 46.2 (28.0-62.0) fl RDW Coeff of Bernarda 15 (11.0-15.0) % Plt Count 198 (150-400) K/uL MPV 10.50 (7.40-12.00) fL Neut % (Auto) 63.4 (48.0-80.0) % Lymph % (Auto) 27.6 (16.0-40.0) % [place] % (Auto) 9.0 (0.0-15.0) % Eos % (Auto) 0.0 (0.0-7.0) % Baso % (Auto) 0.0 (0.0-1.5) % Neut # (Auto) 1.8 (1.4-5.7) K/uL Lymph # (Auto) 0.8 (0.6-2.4) K/uL [place] # (Auto) 0.3 (0.0-0.8) K/uL Eos # (Auto) 0.0 (0.0-0.7) K/uL Baso # (Auto) 0.0 (0.0-0.1) K/uL Nucleated RBC % 0.0 /100WBC Nucleated RBCs # 0 K/uL Sodium 138 (136-145) mmol/L Potassium 4.3 (3.5-5.1) mmol/L Chloride 102 (98-107) mmol/L Carbon Dioxide 28.1 (21.0-32.0) mmol/L BUN 15 (7.0-18.0) mg/dL Creatinine 1.0 (0.6-1.0) mg/dL Est Cr Clr Drug Dosing 47.27 mL/min Estimated GFR (MDRD) 54.1 ml/min Glucose 217 H (74-106) mg/dL POC Glucose 274 H (70-99) mg/dL Calcium 8.4 L (8.5-10.1) mg/dL Total Bilirubin 0.5 (0.2-1.0) mg/dL AST 21 (15-37) IU/L ALT 25 (14-63) IU/L Alkaline Phosphatase 85 (46-116) U/L Total Protein 6.7 (6.4-8.2) g/dL Albumin 2.8 L (3.4-5.0) g/dL Globulin 3.9 (2.6-4.0) g/dL Albumin/Globulin Ratio 0.7 L (0.9-1.6) 03/06/21 Range/Units 11:23 WBC (4.0-11.0) K/uL RBC (4.30-5.90) M/uL Hgb (12.0-16.0) g/dL Hct (36.0-46.0) % MCV (80.0-98.0) fL MCH (27.0-32.0) pg MCHC (31.0-37.0) g/dL RDW Std Deviation (28.0-62.0) fl RDW Coeff of Bernarda (11.0-15.0) % Plt Count (150-400) K/uL MPV (7.40-12.00) fL Neut % (Auto) (48.0-80.0) % Lymph % (Auto) (16.0-40.0) % [place] % (Auto) (0.0-15.0) % Eos % (Auto) (0.0-7.0) % Baso % (Auto) (0.0-1.5) % Neut # (Auto) (1.4-5.7) K/uL Lymph # (Auto) (0.6-2.4) K/uL [place] # (Auto) (0.0-0.8) K/uL Eos # (Auto) (0.0-0.7) K/uL Baso # (Auto) (0.0-0.1) K/uL Nucleated RBC % /100WBC Nucleated RBCs # K/uL Sodium (136-145) mmol/L Potassium (3.5-5.1) mmol/L Chloride (98-107) mmol/L Carbon Dioxide (21.0-32.0) mmol/L BUN (7.0-18.0) mg/dL Creatinine (0.6-1.0) mg/dL Est Cr Clr Drug Dosing mL/min Estimated GFR (MDRD) ml/min Glucose (74-106) mg/dL POC Glucose 122 H (70-99) mg/dL Calcium (8.5-10.1) mg/dL Total Bilirubin (0.2-1.0) mg/dL AST (15-37) IU/L ALT (14-63) IU/L Alkaline Phosphatase (46-116) U/L Total Protein (6.4-8.2) g/dL Albumin (3.4-5.0) g/dL Globulin (2.6-4.0) g/dL Albumin/Globulin Ratio (0.9-1.6) Med Orders - Current: Current Medications Acetaminophen (Acetaminophen 325 Mg Tab) 650 mg PO Q4H PRN PRN Reason: Pain (Mild 1-3)/fever Last Admin: 03/05/21 20:32 Dose: 650 mg Documented by: Albuterol/Ipratropium (Albuterol/Ipratropium 4 Gm Inhalation [place]) 0 gm INH QID [facility] Last Admin: 03/06/21 12:04 Dose: 1 puff Documented by: Aspirin (Aspirin 81 Mg Tab.Chew) 81 mg PO DAILY [facility] Last Admin: 03/06/21 09:10 Dose: 81 mg Documented by: Atorvastatin Calcium (Atorvastatin 10 Mg Tab) 10 mg PO BEDTIME [facility] Last Admin: 03/05/21 20:30 Dose: 10 mg Documented by: Dexamethasone (Dexamethasone 4 Mg Tab) 6 mg PO DAILY [facility] Stop: 03/13/21 09:01 Last Admin: 03/06/21 10:13 Dose: 6 mg Documented by: Dextrose/Water (50% Dextrose In Water 50 Ml Syringe) 50 ml IV ASDIRECTED PRN PRN Reason: Hypoglycemia Gabapentin (Gabapentin 100 Mg Cap) 100 mg PO DAILY [facility] Last Admin: 03/06/21 09:10 Dose: 100 mg Documented by: Glucagon (Glucagon,Human Recombinant 1 Mg Vial) 1 mg IM ASDIRECTED PRN PRN Reason: Hypoglycemia Heparin Sodium (Porcine) (Heparin Sodium 5,000 Units/Ml Vial) 5,000 units SUBCUT Q8H [facility] Last Admin: 03/06/21 09:10 Dose: 5,000 units Documented by: Remdesivir 100 mg/ Sodium (Chloride) 100 mls @ 100 mls/hr IV Q24H [facility] Stop: 03/08/21 16:44 Last Admin: 03/05/21 15:42 Dose: 100 mls/hr Documented by: Insulin Aspart (Insulin Aspart 100 Units/Ml 3 Ml Pen) 0 unit SUBCUT TIDAC [facility]; Protocol Last Admin: 03/06/21 12:03 Dose: Not Given Documented by: Insulin Glargine (Insulin Glargine,Human Rec. Analog 100 Units/Ml 3 Ml Pen) 20 units SUBCUT BEDTIME [facility] Last Admin: 03/05/21 20:36 Dose: 20 units Documented by: Omeprazole (Omeprazole 20 Mg Cap.Cr) 40 mg PO BEDTIME [facility] Ondansetron HCl (Ondansetron 4 Mg/2 Ml Sdv) 4 mg IVPUSH Q4H PRN PRN Reason: Nausea Mycophenolate Sodium 360 Mg Tablet. Pt Own 1 each PO BID [facility] Last Admin: 03/06/21 09:48 Dose: 1 each Documented by: Sodium Chloride (Sodium Chloride 0.9% 2.5 Ml Syringe) 2.5 ml FLUSH ASDIRECTED PRN PRN Reason: Keep Vein Open Last Admin: 03/06/21 09:10 Dose: 2.5 ml Documented by: Tacrolimus (Tacrolimus 1 Mg CapPtom) 1 mg PO Q12HR [facility] Last Admin: 03/06/21 09:48 Dose: 1 mg Documented by: Discontinued Medications Dexamethasone (Dexamethasone 10 Mg/Ml Sdv) 6 mg IVPUSH ONETIME ONE Stop: 03/04/21 12:46 Last Admin: 03/04/21 13:18 Dose: 6 mg Documented by: Sodium Chloride (Normal Saline) 500 mls @ 999 mls/hr IV .BOLUS [facility] Last Admin: 03/04/21 13:16 Dose: 999 mls/hr Documented by: Remdesivir 200 mg/ Sodium (Chloride) 250 mls @ 250 mls/hr IV ONETIME ONE Stop: 03/04/21 16:59 Last Admin: 03/04/21 17:42 Dose: 250 mls/hr Documented by: Magnesium Sulfate (Magnesium Sulfate In Water 2 Gm/50 Ml) 2 gm in 50 mls @ 50 mls/hr IV ONETIME ONE Stop: 03/05/21 14:59 Last Admin: 03/05/21 14:27 Dose: 50 mls/hr Documented by: Omeprazole (Omeprazole 20 Mg Cap.Cr) 40 mg PO DAILY@0700 [facility] Last Admin: 03/05/21 07:44 Dose: 40 mg Documented by: Ondansetron HCl (Ondansetron 4 Mg/2 Ml Sdv) 4 mg IVPUSH ONETIME ONE Stop: 03/04/21 12:48 Last Admin: 03/04/21 13:16 Dose: 4 mg Documented by: Sodium Chloride (Sodium Chloride 0.9% 10 Ml Syringe) 10 ml FLUSH ASDIRECTED PRN PRN Reason: Keep Vein Open Last Admin: 03/04/21 13:19 Dose: 10 ml Documented by: Sodium Chloride (Sodium Chloride 0.9% 2.5 Ml Syringe) 2.5 ml FLUSH ASDIRECTED PRN PRN Reason: Keep Vein Open Last Admin: 03/04/21 13:19 Dose: 2.5 ml Documented by: Tacrolimus (Tacrolimus 1 Mg Cap) 1 mg PO DAILY [facility] Tacrolimus (Tacrolimus 1 Mg CapPt Own) 2 mg PO Q12H [facility] Last Admin: 03/04/21 21:13 Dose: 1 mg Documented by:
[2021-03-06] MEDS: REMDESIVIR 100 MG in Sodium Chloride 0.9% 100 ML IV SCH (16:25)
[2021-03-06] MEDS: Insulin Glargine,Human Rec. Analog 100 Units/ML 3 ML Pen SUBCUT SCH (20:36)
[2021-03-06] MEDS: atorvaSTATin 10 MG Tab PO SCH (20:38)
[2021-03-06] MEDS ORDERED: Omeprazole 20 MG Cap.CR PO SCH (21:00)
[2021-03-07] MEDS: Albuterol/Ipratropium 4 GM Inhalation Spray INH SCH (05:55)
== END 2021-03-07 07:00 | disposition home or self-care (01) | DRG 177 ==
LOC: MW.ED 12:29 → MW.MS 14:12
PROVIDERS: ADMIT Student in an Organized Health Care Education/Training Program; ATTEND Student in an Organized Health Care Education/Training Program
PROC: XW033E5 Introduction of Remdesivir Anti-infective into Peripheral Vein, Percutaneous Approach, New Technology Group 5 (ICD-10-PCS; principal; 2021-03-04)
DX: U07.1 COVID-19 (principal); N18.6 End stage renal disease; J96.01 Acute respiratory failure with hypoxia; I12.0 Hypertensive chronic kidney disease with stage 5 chronic kidney disease or end stage renal disease; H54.7 Unspecified visual loss; E11.22 Type 2 diabetes mellitus with diabetic chronic kidney disease; Z99.2 Dependence on renal dialysis; Z85.820 Personal history of malignant melanoma of skin; Z88.2 Allergy status to sulfonamides; Z79.82 Long term (current) use of aspirin; Z79.4 Long term (current) use of insulin; Z79.52 Long term (current) use of systemic steroids; Z79.899 Other long term (current) drug therapy
CPT/HCPCS: 36415; 71045; 80053; 83880; 84484; 85025; 93005; 99285; J1100; J2405; J7040; 82947; 83735; 93010; 99204; 99283; A9270-GY; J1644; J1815-GY; J3475; J7050; J8540